=== PATIENT | male | born 1955 | race Caucasian/White ===

== ENCOUNTER 2020-11-13 23:19 | Inpatient (IN) | payer OTHER ==
[~2020-11-13] VITALS: Ht 172.7 cm; Wt 86.2 kg
[~2020-11-13 23:19] MED LIST: [UNRECOGNIZED DRUG - REMARK]; [UNRECOGNIZED DRUG - REMARK]
--- NOTE | 2020-11-13 23:45 | NUR ---
BIBA FROM HOME C/C OF NON RADIATING L SIDED CHEST PAIN FOR 30MINS, PATIENT A/OX4 MAURITANIAN SPEAKING , BREATHING EVEN AND UNLABORED; NO SOB NOTED. VERBALIZED OF PAIN OR AND DISCOMFORT 8/10 L ARM THAT RADIATES TO THE BACK AND HEAD. NEEDS ATTENDED. WILL CARRY OUT MD ORDERS SCHEDULED.
[2020-11-14] MEDS ORDERED: ASPIRIN 325 MG TABLET PO ONE
[2020-11-14 00:04] LABS: BASOPHILS % (AUTO) 0.2 % (0.0-2.0); EOSINOPHILS % (AUTO) 0.4 % (0.0-6.0); HEMATOCRIT 50 % (39-51); HEMOGLOBIN 16.5 g/dL (13.5-17.5); LYMPHOCYTES # (AUTO) 1.8 /CMM (0.8-4.8); LYMPHOCYTES % (AUTO) 22.4 % (20.0-44.0); MEAN CORPUSCULAR HGB CONC 33 g/dl (31.0-36.0); MEAN CORPUSCULAR VOLUME 96 fL (80-96); MONOCYTES # (AUTO) 0.7 /CMM (0.1-1.30); MONOCYTES % (AUTO) 9.2 % (2.0-12.0); NEUTROPHILS # (AUTO) 5.5 /CMM (1.8-8.9); NEUTROPHILS % (AUTO) 67.8 % (43.0-81.0); PLATELET COUNT (AUTO) 174 /CMM (150-450); RED BLOOD CELL COUNT(AUTO) 5.24 MIL/uL (4.5-6.0)
[2020-11-14] MEDS ORDERED: ASPIRIN 325 MG TABLET ONE (00:04)
[2020-11-14] MEDS ORDERED: MORPHINE SULFATE INJ 2 MG/ML DISP.SYRIN ONE ×2 (00:04→00:45)
[2020-11-14 00:14] LABS: CARBON DIOXIDE 22 mmol/L (21-32); CHLORIDE 101 mmol/L (98-107); GLUCOSE 212 mg/dL (74-106); POTASSIUM 3.8 mmol/L (3.5-5.1); SODIUM SERUM 136 mmol/L (136-145); UREA NITROGEN, BLOOD 14 mg/dL (7-18)
--- NOTE | 2020-11-14 00:16 | NUR ---
PT REFUSED ASPIRIN 32MG, PT TOOK AT HOME AND ONE IN THE AMBULANCE. MD SOSA. Addendum: 11/14/20 at 0018 by LUIS ASPIRIN-325MG
[2020-11-14 00:20] LABS: ALANINE AMINOTRANSFERASE 40 U/L (12-78); ALBUMIN 3.5 g/dL (3.4-5.0); ALKALINE PHOSPHATASE 62 U/L (46-116); ASPARTATE AMINOTRANSFERASE 16 U/L (15-37); BILIRUBIN,DIRECT 0.1 mg/dL (0.0-0.2); BILIRUBIN,TOTAL 0.5 mg/dL (0.2-1.0); TOTAL PROTEIN, SERUM 7.2 g/dL (6.4-8.2)
[2020-11-14 00:24] LABS: CALCIUM, SERUM 8.6 mg/dL (8.5-10.1)
[2020-11-14] MEDS ORDERED: MORPHINE SULFATE INJ 2 MG/ML DISP.SYRIN IV ONE ×2 (01:00)
[2020-11-14] MEDS ORDERED: MAG HYDROX/AL HYDROX/SIMETH 30 ML UDC PO ONE (01:00)
[2020-11-14] MEDS ORDERED: LIDOCAINE VISCOUS 2% UD 15 ML UDC MM ONE (01:00)
--- NOTE | 2020-11-14 01:00 | NUR ---
PER ADMITTING DEPARTMENT, REC'D VERBAL AUTH FOR PATIENT TO BE ADMITTED TO [facility] ER
--- NOTE | 2020-11-14 01:06 | NUR ---
DR. PAREDES SPEAKING WITH MARIUSZ HURLEY NP REGARDING ADMISSION
[2020-11-14] MEDS ORDERED: MAG HYDROX/AL HYDROX/SIMETH 30 ML UDC ONE (01:08)
[2020-11-14] MEDS ORDERED: LIDOCAINE VISCOUS 2% UD 15 ML UDC ONE (01:08)
[2020-11-14] MEDS ORDERED: MAG HYDROX/AL HYDROX/SIMETH 30 ML UDC PO PRN (01:30)
[2020-11-14] MEDS ORDERED: MORPHINE SULFATE INJ 2 MG/ML DISP.SYRIN IV PRN (01:30)
[2020-11-14] MEDS ORDERED: NITROGLYCERIN 0.4 MG/TAB BOTTLE SL PRN (01:30)
[2020-11-14] MEDS ORDERED: ONDANSETRON HCL/PF 4 MG/2 ML VIAL IVP PRN (01:30)
[2020-11-14] MEDS ORDERED: DOCUSATE SODIUM 100 MG CAPSULE PO PRN (01:30)
--- NOTE | 2020-11-14 02:25 | NUR ---
CALLED 3W; ADMISSION REPORT GIVEN TO ASTRID SINGH FOR DOMENIC.
--- NOTE | 2020-11-14 02:35 | NUR ---
TRANSFEERED TO 3W ROOM 311#2 VIA GURNEY PER ACLS PROTOCOL. ASTRID SINGH RECEIVED PT FOR DOMENIC.
[2020-11-14 02:45] VITALS: BP 154/102
--- NOTE | 2020-11-14 03:12 | NUR ---
MS/TELE/RN RECEIVED PATIENT FROM [facility] BY PRACHI AT ABOUT 0240. PATIENT WAS AWAKE, ALERT, ORIENTED, COMFORTABLE, WITH C/O MILD CHEST DISCOMFORT, NO DISTRESS NOTED, MADE COMFORTABLE IN BED, ADMISSION DONE, UNABLE TO OBTAIN MUCH INFORMATION FROM THE PATIENT DUE TO LANGUAGE BARRIER, HOWEVER, PATIENT SPEAKS AND UNDERSTANDS SOME HEBREW. INFORMED PATIENT RE: NPO AFTER BREAKFAST DUE TO CHEST PAIN DIAGNOSIS, TAUGHT PATIENT HOW TO USE CALL LIGHT, PLACED IT AT BEDSIDE WITHIN REACH, FALL PRECAUTIONS PER PROTOCOL, WILL MONITOR.
[2020-11-14 04:00] VITALS: BP 141/85
[2020-11-14] MEDS: ACETAMINOPHEN 325 MG TABLET PO PRN ×2 (04:19→08:02)
--- NOTE | 2020-11-14 06:36 | NUR ---
MS/TELE/RN PATIENT IS AWAKE, COMFORTABLE, NO DISTRESS NOTED, CALL LIGHT IN REACH, ALL NEEDS ATTENDED AT THIS TIME, WILL CONTINUE TO MONITOR.
[2020-11-14 07:43] LABS: BASOPHILS % (AUTO) 0.4 % (0.0-2.0); EOSINOPHILS % (AUTO) 0.2 % (0.0-6.0); HEMATOCRIT 49 % (39-51); HEMOGLOBIN 16.1 g/dL (13.5-17.5); LYMPHOCYTES # (AUTO) 1.1 /CMM (0.8-4.8); LYMPHOCYTES % (AUTO) 11.3 % (20.0-44.0); MEAN CORPUSCULAR HGB CONC 33 g/dl (31.0-36.0); MEAN CORPUSCULAR VOLUME 95 fL (80-96); MONOCYTES % (AUTO) 9.9 % (2.0-12.0); NEUTROPHILS # (AUTO) 7.6 /CMM (1.8-8.9); NEUTROPHILS % (AUTO) 78.2 % (43.0-81.0); PLATELET COUNT (AUTO) 183 /CMM (150-450); RED BLOOD CELL COUNT(AUTO) 5.11 MIL/uL (4.5-6.0); WHITE BLOOD COUNT (AUTO) 9.7 K/uL (4.3-11.0)
--- NOTE | 2020-11-14 07:47 | NUR ---
MS/BARTENDER OPENING NOTES RECEIVED PATIENT ALERT AND ORIENTED X4, ABLE TO MAKE NEEDS KNOWN. AMBULATORY. SIERRA LEONEAN SPEAKING BUT UNDERSTANDS LITTLE UPPER SORBIAN. PATIENT ADMITTED FROM HOME DUE TO CHEST PAIN TO R/O ACS. SEEN BY DR. TORRES (TOWER CONTROL OPERATOR) JUST NOW AND PER MD, OKAY TO RESUME MEALS. MD WILL ORDER LABS TODAY. COMFORTABLE IN BED FOR NOW. CALL LIGHTS WITHIN REACH, BED ON LOWEST POSITION. WILL CONTINUE TO MONITOR.
[2020-11-14 08:00] VITALS: BP 101/70
[2020-11-14 08:08] LABS: ALBUMIN 3.5 g/dL (3.4-5.0); BILIRUBIN,TOTAL 0.6 mg/dL (0.2-1.0); CREATININE 0.8 mg/dL (0.6-1.3); MAGNESIUM 2.1 mg/dL (1.8-2.4); PHOSPHORUS 3.5 mg/dL (2.5-4.9); TOTAL PROTEIN, SERUM 7.2 g/dL (6.4-8.2)
--- NOTE | 2020-11-14 08:11 | NUR ---
MS/PRACTICE NURSE NOTES PATIENT COMPLAINED OF HEADACHE AND NAUSEA. PRN TYLENOL GIVEN PO, AND ZOFRAN PRN VIA IV PUSH GIVEN. WILL CONTINUE TO MONITOR.
[2020-11-14 08:18] LABS: THYROID STIMULATING HORMONE 0.875 uIU/mL (0.358-3.74)
--- NOTE | 2020-11-14 08:25 | NUR ---
TELE/RN NOTES TROPONIN 0.778 DR. TORRES WAS AWARE, NO NEW ORDER AT THIS TIME.
[2020-11-14] MEDS ORDERED: ALLO100T PO (08:55)
[2020-11-14] MEDS ORDERED: METF-442 PO (08:55)
[2020-11-14] MEDS ORDERED: ASPI-1420 PO (08:55)
[2020-11-14] MEDS ORDERED: CHOL200010 PO (08:55)
[2020-11-14] MEDS ORDERED: OMEG-220 PO (08:55)
[2020-11-14] MEDS ORDERED: FOLI0.4T6 PO (08:55)
[2020-11-14] MEDS ORDERED: METO50TA16 PO ×2 (08:55→11:52)
[2020-11-14] MEDS ORDERED: NIAC500T40 PO (08:55)
[2020-11-14] MEDS ORDERED: FESO4TAB PO (08:55)
[2020-11-14] MEDS ORDERED: FURO20TA4 PO (08:55)
[2020-11-14] MEDS ORDERED: TAMS-12 PO (08:55)
[2020-11-14] MEDS ORDERED: BUSP5TAB3 PO (08:55)
[2020-11-14] MEDS ORDERED: AMYL1CAP56 PO (08:55)
[2020-11-14] MEDS ORDERED: ENOXAPARIN SODIUM 60 MG/0.6 ML DISP.SYRIN SQ SCH (09:00)
[2020-11-14] MEDS ORDERED: ASPIRIN 81 MG TAB.CHEW PO SCH (09:00)
[2020-11-14] MEDS: ENOXAPARIN SODIUM 80 MG/0.8 ML DISP.SYRIN SQ SCH ×2 (09:11→20:25)
--- NOTE | 2020-11-14 11:24 | NUR ---
TELE/RN NOTES DIET CHANGED TO CARDIAC DIET WITH LOW CARBS DUE TO BEING A DIABETIC.
[2020-11-14] MEDS: METOPROLOL TARTRATE 50 MG TABLET PO SCH ×2 (11:40→17:11)
[2020-11-14] MEDS ORDERED: SIMV-46 PO (11:50)
[2020-11-14] MEDS: FOLIC ACID 1 MG TABLET PO SCH ×2 (12:00→12:34)
--- NOTE | 2020-11-14 12:00 | NUR ---
TELE/MS NOTES PER JAYSON PEPPER, OKAY TO GIVE PATIENT METFORMIN.
[2020-11-14] MEDS: BLOOD SUGAR DIAGNOSTIC 1 EACH STRIP IN SCH ×3 (12:01→21:51)
[2020-11-14] MEDS: FUROSEMIDE 20 MG TABLET PO SCH (12:34)
[2020-11-14] MEDS: CHOLECALCIFEROL 1,000 UNIT TABLET (VIT D3) PO SCH (12:34)
[2020-11-14] MEDS: ALLOPURINOL 100 MG TABLET PO SCH (12:34)
[2020-11-14] MEDS: LIPASE/PROTEASE/AMYLASE 1 EACH CAPSULE.DR PO SCH ×2 (12:34→17:11)
[2020-11-14] MEDS: busPIRone 5 MG TABLET PO SCH ×2 (12:34→17:11)
--- NOTE | 2020-11-14 12:41 | NUR ---
PATIENT REFUSED FOLIC ACID 1MG 12NOON. PER PATIENT, ONCE A WEEK ON MONDAY HE DOES NOT TAKE FOLIC ACID BASED ON HIS MEDICATION SCHEDULE.
[2020-11-14] MEDS ORDERED: IOHEXOL-350 100 ML VIAL IV ONE (14:56)
[2020-11-14] MEDS ORDERED: IV NS 0.9% 250 ML IV ONE (14:56)
--- NOTE | 2020-11-14 15:05 | NUR ---
TELE/MS NOTES PATIENT PICKED UP BY RADIOLOGY DEPT. FOR THE COMPUTED TOMOGRAPHY ANGIOGRAPHY HEART WITH 3 DIMENSION. CONSENT ALREADY SIGNED EARLIER. WILL MONITOR WHEN PATIENT COMES BACK.
[2020-11-14] MEDS ORDERED: METOPROLOL TARTRATE INJ 5 MG/5 ML AMPUL ONE (15:33)
[2020-11-14] MEDS ORDERED: NITROGLYCERIN 0.4 MG/TAB BOTTLE ONE (15:33)
[2020-11-14] MEDS ORDERED: NIACINAMIDE 500 MG TABLET PO SCH (17:00)
[2020-11-14] MEDS ORDERED: METOPROLOL TARTRATE 50 MG TABLET PO SCH (17:00)
[2020-11-14] MEDS: METFORMIN 500 MG TABLET PO SCH (17:11)
[2020-11-14 17:13] VITALS: BP 113/73
--- NOTE | 2020-11-14 17:15 | NUR ---
tele/rn notes bp 113/73 p 68 metoprolol 50 mg is not given. will continue to monitor.
--- NOTE | 2020-11-14 17:31 | NUR ---
TELE/RN NOTES TROPONIN 6.944 DR. TORRES IS AWARE NO NEW ORDER AT THIS TIME.
--- NOTE | 2020-11-14 19:27 | NUR ---
PATIENT IN BED, COMFORTABLE. NO SOB NOTED.NO REPORTED CHEST PAIN. CT ANGIO HEART WITH 3D STILL PENDING RESULT. NEXT SHIFT NURSE WILL FOLLOW UP AND REPORT RESULT TO DR. TORRES. BED ON LOWEST, WITH SIDE RAILS UPX2, CALL LIGHT WITHIN REACH. WILL ENDORSE TO THE NEXT SHIFT RN TO CONTINUE TO MONITOR.
--- NOTE | 2020-11-14 19:33 | NUR ---
TRUST AND ESTATES PARALEGAL OPENING NOTES PATIENT WAS LAST SEEN AWAKE IN BED. PATIENT IS ALERT AND ORIENTED X4. PATIENT IS ON ROOM AIR WITH NO RESPIRATORY DISTRESS NOTED. PATIENT HAS AN IV ACCESS ON HIS LEFT AC GAUGE #2O WHICH IS INTACT, PATENT, AND FLUSHES WELL. SAFETY PRECAUTIONS IMPLEMENTED. BED LOCKED. SIDE RAILS UP. CALL LIGHT IS WITHIN REACH OF THE PATIENT. WILL CONTINUE TO MONITOR THE PATIENT.
[2020-11-14 20:00] VITALS: BP 113/66
--- NOTE | 2020-11-14 20:11 | NUR ---
TELE/RN NOTES DR. TORRES IS AWARE OF THE PATIENT'S LATEST TROPONIN LEVEL OF 6.944. NO ORDERS WERE GIVEN FOR THAT. DR. RNADOLPH WAS MADE AWARE OF THE CT CORONARY ANGIOGRAM RESULTS AND THAT THE PATIENT WAS IN NO CHEST PAIN AT 2010 TODAY. NO ORDERS WERE GIVEN VIA DR. RANDOLPH.
[2020-11-14] MEDS: TAMSULOSIN 0.4 MG CAP.SR.24H PO SCH (21:35)
[2020-11-14] MEDS: SIMVASTATIN 20 MG TABLET PO SCH (21:35)
--- NOTE | 2020-11-14 23:06 | NUR ---
MS RN NOTES PATIENT'S BLOOD SUGAR AT 2146 WAS 168 MG/DL.
[2020-11-15] VITALS (7 sets, daily range): BP systolic 97–119; BP diastolic 59–75
[2020-11-15] MEDS: METOPROLOL TARTRATE 50 MG TABLET PO SCH ×4 (00:30→17:19)
[2020-11-15] MEDS: BLOOD SUGAR DIAGNOSTIC 1 EACH STRIP IN SCH ×4 (07:10→22:00)
--- NOTE | 2020-11-15 07:45 | NUR ---
MS RN OPENING NOTES RECEIVED PATIENT AWAKE IN BED. PATIENT IS A/O X4. PATIENT ON ROOM AIR. PATIENT IS LIBERIAN SPEAKING. TELE RHYTHM IS SINUS 1ST DEGREE BLOCK. PATIENT HAS RAC#18 AND LAC#20. NO SIGNS OF PAIN OR DISTRESS NOTED. ALL SAFETY PRECAUTIONS KEPT IN PLACE. BED IS LOCKED WITH SIDE RAILS UP X3. CALL LIGHT IS WITHIN REACH. WILL CONTINUE TO MONITOR THE PATIENT THROUGHOUT SHIFT
--- NOTE | 2020-11-15 07:53 | NUR ---
BOOK REPAIRER CLOSING NOTES PATIENT WAS LAST SEEN AWAKE IN BED. PATIENT IS ALERT AND ORIENTED X4. PATIENT IS ON ROOM AIR WITH NO RESPIRATORY DISTRESS NOTED. PATIENT'S LATEST BLOOD SUGAR WAS 230 MG/DL. DAY SHIFT NURSE WAS MADE AWARE. PATIENT HAS AN IV ACCESS ON HIS LEFT AC GAUGE #2O WHICH IS INTACT, PATENT, AND FLUSHES WELL. SAFETY PRECAUTIONS IMPLEMENTED. BED LOCKED. SIDE RAILS UP. CALL LIGHT IS WITHIN REACH OF THE PATIENT. ENDORSED CARE TO DAY SHIFT NURSE.
[2020-11-15] MEDS: FOLIC ACID 1 MG TABLET PO SCH (09:00)
[2020-11-15] MEDS: METFORMIN 500 MG TABLET PO SCH ×2 (09:25→17:18)
[2020-11-15] MEDS: busPIRone 5 MG TABLET PO SCH ×2 (09:26→17:18)
[2020-11-15] MEDS: ASPIRIN EC 81 MG TABLET.DR PO SCH (09:27)
[2020-11-15] MEDS: FUROSEMIDE 20 MG TABLET PO SCH (09:27)
[2020-11-15] MEDS: CHOLECALCIFEROL 1,000 UNIT TABLET (VIT D3) PO SCH (09:27)
[2020-11-15] MEDS: ALLOPURINOL 100 MG TABLET PO SCH (09:28)
[2020-11-15] MEDS: LIPASE/PROTEASE/AMYLASE 1 EACH CAPSULE.DR PO SCH ×3 (09:28→17:16)
[2020-11-15] MEDS: ENOXAPARIN SODIUM 80 MG/0.8 ML DISP.SYRIN SQ SCH ×2 (09:31→22:21)
[2020-11-15 09:57] LABS: BASOPHILS % (AUTO) 0.5 % (0.0-2.0); EOSINOPHILS % (AUTO) 0.3 % (0.0-6.0); HEMATOCRIT 51 % (39-51); HEMOGLOBIN 16.7 g/dL (13.5-17.5); LYMPHOCYTES # (AUTO) 1.2 /CMM (0.8-4.8); MEAN CORPUSCULAR HGB CONC 33 g/dl (31.0-36.0); MEAN CORPUSCULAR VOLUME 96 fL (80-96); MONOCYTES % (AUTO) 11.8 % (2.0-12.0); NEUTROPHILS # (AUTO) 5.9 /CMM (1.8-8.9); NEUTROPHILS % (AUTO) 72.4 % (43.0-81.0); PLATELET COUNT (AUTO) 188 /CMM (150-450); RED BLOOD CELL COUNT(AUTO) 5.26 MIL/uL (4.5-6.0); WHITE BLOOD COUNT (AUTO) 8.1 K/uL (4.3-11.0)
[2020-11-15 10:43] LABS: CALCIUM, SERUM 9.1 mg/dL (8.5-10.1); CREATININE 1.1 mg/dL (0.6-1.3); POTASSIUM 3.9 mmol/L (3.5-5.1)
[2020-11-15 10:49] LABS: ALBUMIN 3.5 g/dL (3.4-5.0); BILIRUBIN,TOTAL 0.9 mg/dL (0.2-1.0); MAGNESIUM 2.3 mg/dL (1.8-2.4); PHOSPHORUS 3.3 mg/dL (2.5-4.9); TOTAL PROTEIN, SERUM 7.4 g/dL (6.4-8.2)
--- NOTE | 2020-11-15 12:01 | NUR ---
TELE MS RN NOTES PATIENTS PROMISED TO BRING NIACINAMIDE FROM HOME.
--- NOTE | 2020-11-15 15:09 | NUR ---
RN NOTES RECEIVED CALL FROM [employer] THAT PATIEMTS TROPONIN LEVEL IS 12.[address] TORRES, REPLIED THAT PATIENT IS FOR CARDIAC CATH TOMORROW. WILL CONTINUE TO MONITOR.
--- NOTE | 2020-11-15 18:43 | NUR ---
RN CLOSING NOTES PATIENT IS AWAKE LAYING IN BED. AT BEDSIDE. ALERT AND ORIENTED X 4. PATIENT GOING FOR CARDIAC CATH TMRW, CONSENT SIGNED BY PATIENT. PATIENT AWARE NPOTO BE ENFORCED AFTER MIDNIGHT .NO ACUTE DISTRESS NOTED. NO COMPLAINTS OF PAIN. CALL LIGHT WITHIN REACH. ALL NEEDS MET. WILL ENDORSE TO ONCOMING SHIFT Addendum: 11/15/20 at 1903 by NATAN HESS RN ADDENDUM PATIENT ON TELE MONITOR WITH CURRENT READING OF SINUS RHYHM 1ST DEGREE BLOCK WITH PVCS HEART RATE 86
--- NOTE | 2020-11-15 19:24 | NUR ---
SSIS ARCHITECT NOTES PATIENT IS AWAKE LAYING IN BED. AT BEDSIDE. ALERT AND ORIENTED X 4. NO PAIN DISCOMFORT NOTED OR REPORTED AT THIS TIME. NO RESPIRATORY DISTRESS NOTED OR REPORTED PT BREATHING UNLABORED WITH SYMMETRICAL RISE ND FALL OF CHEST. PATIENT GOING FOR CARDIAC CATH TMRW,CONSENT SIGNED BY PATIENT. PATIENT AWARE NPO TO BE ENFORCED AFTER MIDNIGHT CALL LIGHT WITHIN REACH. ALL NEEDS MET AT THIS TIME. SAFETY PRECAUTIONS FOLLOWED. WILL CONTINUE TO MONITOR
[2020-11-15] MEDS: TAMSULOSIN 0.4 MG CAP.SR.24H PO SCH (22:14)
[2020-11-15] MEDS: SIMVASTATIN 20 MG TABLET PO SCH (22:15)
[2020-11-16] VITALS (15 sets, daily range): BP systolic 100–144; BP diastolic 23–96
[2020-11-16] MEDS: METOPROLOL TARTRATE 50 MG TABLET PO SCH ×5 (00:28→23:08)
[2020-11-16] MEDS: BLOOD SUGAR DIAGNOSTIC 1 EACH STRIP IN SCH ×4 (06:30→21:59)
[2020-11-16 06:34] LABS: BASOPHILS % (AUTO) 0.3 % (0.0-2.0); EOSINOPHILS % (AUTO) 0.6 % (0.0-6.0); HEMATOCRIT 47 % (39-51); HEMOGLOBIN 15.5 g/dL (13.5-17.5); LYMPHOCYTES # (AUTO) 1.4 /CMM (0.8-4.8); LYMPHOCYTES % (AUTO) 19.3 % (20.0-44.0); MEAN CORPUSCULAR HGB CONC 33 g/dl (31.0-36.0); MEAN CORPUSCULAR VOLUME 96 fL (80-96); MONOCYTES # (AUTO) 0.8 /CMM (0.1-1.30); NEUTROPHILS # (AUTO) 4.8 /CMM (1.8-8.9); NEUTROPHILS % (AUTO) 67.8 % (43.0-81.0); PLATELET COUNT (AUTO) 159 /CMM (150-450); RED BLOOD CELL COUNT(AUTO) 4.86 MIL/uL (4.5-6.0)
--- NOTE | 2020-11-16 06:38 | NUR ---
OUTSIDE DEALER SALES REPRESENTATIVE NOTES PATIENT IS AWAKE LAYING IN BED. ALERT AND ORIENTED X 4. NO PAIN DISCOMFORT NOTED OR REPORTED AT THIS TIME. NO RESPIRATORY DISTRESS NOTED OR REPORTED PT BREATHING UNLABORED WITH SYMMETRICAL RISE ND FALL OF CHEST. PT NPO FOR PROCEDURE TODAY.CONSENT SIGNED BY PATIENT. CALL LIGHT WITHIN REACH. ALL NEEDS MET AT THIS TIME. SAFETY PRECAUTIONS FOLLOWED. WILL ENDORSE CARE TO DAY SHIFT NURSE.
[2020-11-16 07:01] LABS: ALBUMIN 3.1 g/dL (3.4-5.0); BILIRUBIN,TOTAL 0.6 mg/dL (0.2-1.0); CREATININE 0.9 mg/dL (0.6-1.3); MAGNESIUM 2.1 mg/dL (1.8-2.4); PHOSPHORUS 3.8 mg/dL (2.5-4.9); POTASSIUM 3.4 mmol/L (3.5-5.1); TOTAL PROTEIN, SERUM 6.7 g/dL (6.4-8.2)
--- NOTE | 2020-11-16 07:03 | NUR ---
NEWS ASSISTANT OPENING NOTES RECEIVED PT AWAKE IN BED AT THIS TIME. AOX4.ABLE TO VERBALIZE NEEDS. NO SOB NOTED, NO S/O ANY APPARENT DISTRESS NOTED, NO C/O OF PAIN AT THIS TIME. PT STABLE ON RA. RESPIRATIONS EVEN AND UNLABORED. PT ON EXTERNAL CARDIAC TELE MONITOR READING SR IN THE 80s. IV ACCESS NOTED IN LAC G#20, INTACT, PATENT AND FLUSHING WELL. SAFETY PRECAUTIONS IN PLACE AND MAINTAINED AT ALL TIMES. BED IN LOWEST LOCKED POSITION, HOB ELEVATED, SIDE RAILS UP X 2. CALL LIGHT AND TABLE WITHIN REACH. WILL CONTINUE TO MONITOR
[2020-11-16] MEDS: LIPASE/PROTEASE/AMYLASE 1 EACH CAPSULE.DR PO SCH ×3 (08:23→17:15)
[2020-11-16] MEDS: ALLOPURINOL 100 MG TABLET PO SCH (08:24)
[2020-11-16] MEDS: CHOLECALCIFEROL 1,000 UNIT TABLET (VIT D3) PO SCH (08:24)
[2020-11-16] MEDS: METFORMIN 500 MG TABLET PO SCH ×2 (08:25→16:54)
[2020-11-16] MEDS: busPIRone 5 MG TABLET PO SCH ×2 (08:25→17:15)
[2020-11-16] MEDS: FOLIC ACID 1 MG TABLET PO SCH (08:28)
[2020-11-16] MEDS ORDERED: POTASSIUM CHLORIDE 20 MEQ TAB.PRT.SR PO SCH (09:00)
[2020-11-16] MEDS: ENOXAPARIN SODIUM 80 MG/0.8 ML DISP.SYRIN SQ SCH ×2 (09:00→21:48)
[2020-11-16] MEDS ORDERED: IODIXANOL 150 ML IV ONE (09:49)
[2020-11-16] MEDS ORDERED: IV NS 0.9% 1,000 ML ONE (09:49)
[2020-11-16] MEDS: ASPIRIN EC 81 MG TABLET.DR PO SCH (09:51)
--- NOTE | 2020-11-16 12:30 | NUR ---
PATIENT TRANSPORTED FOR CARDIAC CATH BY BED AT THIS TIME BY TWO INSURANCE UNDERWRITING ASSISTANT RNS WITH ACLS PROTOCOLS IN PLACE. WILL CONTINUE WITH PLAN OF CARE.
[2020-11-16] MEDS ORDERED: LIDOCAINE HCL/MPF 1% 30 ML VIAL IJ ONE (12:37)
[2020-11-16] MEDS ORDERED: FENTANYL PF 100MCG/2ML AMPUL ONE ×2 (13:21→14:36)
[2020-11-16] MEDS ORDERED: MIDAZOLAM HCL 2 MG/2ML VIAL ONE (13:22)
[2020-11-16] MEDS ORDERED: NITROGLYCERIN ICAR 1,000 MCG/10 ML VIAL ICAR ONE ×2 (13:22→14:26)
[2020-11-16] MEDS ORDERED: PHENYLEPHRINE 10 MG/ML VIAL ONE (14:06)
[2020-11-16] MEDS ORDERED: IODIXANOL 320MG/ML 50 ML IV ONE (14:09)
[2020-11-16] MEDS ORDERED: HEPARIN SODIUM, PORCINE 1,000 UNIT/ML VIAL ONE (14:19)
[2020-11-16] MEDS ORDERED: hydrALAZINE HCL IV 20 MG VIAL ONE (14:36)
[2020-11-16] MEDS ORDERED: TICAGRELOR 90 MG TABLET PO ONE (14:41)
[2020-11-16] MEDS ORDERED: ASPIRIN 81 MG TAB.CHEW ONE (14:41)
[2020-11-16] MEDS ORDERED: IODIXANOL IV ONE ×2 (14:44)
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
[2020-11-16] MEDS ORDERED: IV NS 0.9% 1,000 ML IV ONE (16:00)
[2020-11-16] MEDS ORDERED: ASPIRIN 81 MG TAB.CHEW PO ONE (16:00)
[2020-11-16] MEDS ORDERED: MAGNESIUM HYDROXIDE 30 ML UDC PO PRN (16:30)
--- NOTE | 2020-11-16 16:54 | NUR ---
PATIENT S/P CARDIAC CATH PROCEDURE. REPORT CALLED TO ASTRID MCCLELLAN AT ICU AT THIS TIME.
--- NOTE | 2020-11-16 16:57 | NUR ---
VIRA, PATIENT'S ([phone]) UPDATED ON PATIENTS STATUS AND TRANSFER TO ICU RM 254 POST CARDIAC CATH AT THIS TIME.
--- NOTE | 2020-11-16 17:01 | NUR ---
LEATHER TACKER NOTES METFORMIN HELD 2 HOURS POST HOME EXTENSION AGENT PROCEDURE PER ORDER
--- NOTE | 2020-11-16 17:12 | NUR ---
TOUR OPERATOR NOTES NOTIFIED DR TORRES REGARDING TROPONIN OF 9.308 , VERIFIED IF HE WANTS TO TREND IT Q6 OR ORDER IN AM , PER MD ORDER ONE FOR AM , ORDER CARRIED OUT
[2020-11-16] MEDS: TICAGRELOR 90 MG TABLET PO SCH (17:15)
--- NOTE | 2020-11-16 17:30 | NUR ---
WORSHIP LEADER NOTES RIGHT RADIAL TR BAND REMOVED , NO BLEEDING NOTED , TAGADERM APPLIED RIGHT FEMORAL INSERTION SITE DRESSING CLEAN DRY AND INTACT NO BLEEDING NOTED , RIGHT AND LEFT DORSALIS PEDIS AND POSTERIOR TIBIAL PULSES ARE PALPABLE , WARM TO TOUCH , CAPILLARY REFILL LESS THAN 3 SECONDS , SENSATION PRESENT NO TINGLING SENSATION NOTED ,
--- NOTE | 2020-11-16 17:33 | NUR ---
PUG MILL OPERATOR HELPER NOTES SPOKE WITH CATHY REGARDING BRILINTA PRESCRIPTION , CASE MANAGEMENT AWARE ,.
--- NOTE | 2020-11-16 18:58 | NUR ---
CHROME TANNER NOTES VERIFIED WITH DR RODRIGUEZ WHEN PT CAN BE OUT OF BED , PER MD 2 HOURS POST SHEAT REMOVAL .
--- NOTE | 2020-11-16 18:59 | NUR ---
FREIGHT SOLICITOR NOTES PATIENT STABLE AT THIS TIME . AOX4 FAROESE / FRENCH SPEAKING , SR 95 ON BEDSIDE MONITOR , SPO2 OF 100% VIA RA , IV OF TREVER ML PATENT AND INTACT WITH NS @ 100ML/HR X6 HOURS , L AC # 20 PATENT AND INTACT SL , RIGHT RADIAL TRANSPARENT DRESSING IN PLACE NO BLEEDING NOTED , RIGHT FEMORAL INSERTION SITE CLEAN DRY AND INTACT , RIGHT AND LEFT DORSALIS PEDIS AND POSTERIOR TIBIAL PULSES ARE PALPABLE , WARM TO TOUCH , DENIES NUMBNESS AND TINGLINGSENSATION , CAPILLARY REFILL BELOW 3 SECONDS @ BOTH HANDS AND BOTH FOOT , ALL NEEDS ATTENDED , HOB @ 30 , REPORT GIVEN TO [facility] FOR CONTINUITY OF CARE
--- NOTE | 2020-11-16 19:30 | NUR ---
RN NOTES RECEIVED PATIENT AWAKE ON BED. BREATHING EVEN AND UNLABORED ON ROOM AIR. NO SOB DENIES CHEST PAIN. 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 IV SITE ON TREVER ML AND LAC WITH NS 100 ML/HR X 6HRS TO BE DONE AT 10 PM . PATIENT HAS RIGHT TR BAND REMOVED WITH SMALL BLD. BUT NOT ACTIVELY BLEEDING. RIGHT GROIN WITH CLEAN DRESSING. NO C/O PAIN. CALL LIGHT PLACED WITHIHN EASY REACH. WILL CONTINUE TO MONITOR.
[2020-11-16] MEDS: TAMSULOSIN 0.4 MG CAP.SR.24H PO SCH (21:48)
[2020-11-16] MEDS: SIMVASTATIN 20 MG TABLET PO SCH (21:48)
--- NOTE | 2020-11-16 23:00 | NUR ---
RN NOTES PATIENT ISBEGGING AND REQUESTING NOT TO PUT THE BP CUFF ON HIS ARM WHILE HE WAS SLEEPING. PER PATIENT HE CANT SLEEP BECAUSE IT KEEPS SQUEEZING HIS ARM AND WOKE HIM UP. RISK AD BENEFITS EXPLAINED AND THE POLICY OF BEING IN ICU, PATIENT IS AWARE, RESPECTED PATIENT REQUEST AND INFORMED ONCALL. WILL LOSELY MONITOR,
[2020-11-17] VITALS (7 sets, daily range): BP systolic 96–118; BP diastolic 63–75
--- NOTE | 2020-11-17 06:08 | NUR ---
RN NOTES INFORMED MARIUSZ HONEYCUTT REGARDING CRITICAL TROPONIN 10.103 FROM 9.3 YESTERDAY. PER SUPERINTENDENT COLLIERY, MONITOR PATIENT.
[2020-11-17] MEDS: METOPROLOL TARTRATE 50 MG TABLET PO SCH ×2 (06:57→11:47)
--- NOTE | 2020-11-17 07:15 | NUR ---
RN NOTES PATIENT ASLEEP WELL ON BED. BREATHING EVEN AND UNLABORED. DENIES PAIN. AFEBRILE. VSS. REMAINED SR WITH FIRST DEGREE AVB WITH BBB. DENIES CHEST PAIN. NO SIGNIFICANT CHANGES. KEPT PT CLEAN AND COMFORTABLE IN BED. ALL DUE MEDS ADMINISTERED ORDERED.
--- NOTE | 2020-11-17 07:52 | NUR ---
OPENING NOTE: REPORT RECEIVED FROM PITA RESENDIZ. PT HAD AN UNEVENTFUL NIGHT PER REPORT. DR. TORRES SAW PATIENT THIS AM AND STATED PT CAN BE DISCHARGED TODAY. DAYANA RESENDIZ TRANSLATED FOR DR TORRES IN ROOM. AWAITING DC ORDERS FROM PRIMARY MD. NO AM LABS TODAY EXCEPT TROPONIN, WHICH IS ELEVATED AT 10.3, DR TORRES AWARE. PER REPORT PT DOES NOT WANT TO KEEP THE BP CUFF ON SO RN WILL PUT THE BP CUFF ON WHEN VS DUE. PT HAS AGREED TO KEEP TELEMETRY ON. WILL CONTINUE TO MONITOR.
[2020-11-17 08:17] LABS: BASOPHILS % (AUTO) 0.7 % (0.0-2.0); EOSINOPHILS % (AUTO) 0.5 % (0.0-6.0); HEMATOCRIT 48 % (39-51); HEMOGLOBIN 15.6 g/dL (13.5-17.5); LYMPHOCYTES # (AUTO) 0.7 /CMM (0.8-4.8); LYMPHOCYTES % (AUTO) 10.6 % (20.0-44.0); MEAN CORPUSCULAR HGB CONC 33 g/dl (31.0-36.0); MEAN CORPUSCULAR VOLUME 96 fL (80-96); MONOCYTES # (AUTO) 0.4 /CMM (0.1-1.30); MONOCYTES % (AUTO) 6.2 % (2.0-12.0); NEUTROPHILS # (AUTO) 5.4 /CMM (1.8-8.9); PLATELET COUNT (AUTO) 159 /CMM (150-450); RED BLOOD CELL COUNT(AUTO) 4.97 MIL/uL (4.5-6.0); WHITE BLOOD COUNT (AUTO) 6.6 K/uL (4.3-11.0)
[2020-11-17 08:23] LABS: CALCIUM, SERUM 8.8 mg/dL (8.5-10.1); POTASSIUM 3.6 mmol/L (3.5-5.1)
[2020-11-17 08:29] LABS: BILIRUBIN,TOTAL 0.9 mg/dL (0.2-1.0); PHOSPHORUS 2.7 mg/dL (2.5-4.9); TOTAL PROTEIN, SERUM 6.7 g/dL (6.4-8.2)
--- NOTE | 2020-11-17 08:40 | NUR ---
RN SPOKE TO DR JORI BLAKE. PT HAS METFORMIN ORDERED THAT IS SUPPOSED TO BE HELD FOR 48 HOURS AFTER HEART CATH, HEART CATH WAS YESTERDAY. BLOOD GLUCOSE THIS AM IS 195. PT INSISTING ON TAKING HIS METFORMIN DOSE. PER DR. JORI BLAKE BENEFITS OUTWEIGH THE RISKS, OK TO GIVE METFORMIN DOSE THIS AM.
[2020-11-17] MEDS: busPIRone 5 MG TABLET PO SCH (08:43)
[2020-11-17] MEDS: LIPASE/PROTEASE/AMYLASE 1 EACH CAPSULE.DR PO SCH ×2 (08:43→11:47)
[2020-11-17] MEDS: BLOOD SUGAR DIAGNOSTIC 1 EACH STRIP IN SCH ×2 (08:43→11:46)
[2020-11-17] MEDS: CHOLECALCIFEROL 1,000 UNIT TABLET (VIT D3) PO SCH (08:43)
[2020-11-17] MEDS: ALLOPURINOL 100 MG TABLET PO SCH (08:44)
[2020-11-17] MEDS: FOLIC ACID 1 MG TABLET PO SCH (08:44)
[2020-11-17] MEDS: TICAGRELOR 90 MG TABLET PO SCH (08:44)
[2020-11-17] MEDS: METFORMIN 500 MG TABLET PO SCH (08:44)
[2020-11-17] MEDS: ASPIRIN EC 81 MG TABLET.DR PO SCH (08:44)
[2020-11-17 10:33] LABS: LYMPHOCYTES % (MANUAL) 9 % (16-48); MONOCYTES % (MANUAL) 8 % (0-11.0); NEUTROPHILS % (MANUAL) 83 (42-76)
[2020-11-17] MEDS ORDERED: TICA90TA PO (10:42)
--- NOTE | 2020-11-17 15:38 | NUR ---
DISCHARGED PATIENT AT 1507, PT BROUGHT TO CAR IN WHEELCHAIR BY RN, ACCOMPANIED. PRIOR TO DISCHARGE DISCHARGE INSTRUCTIONS GIVEN AND SIGNED BY . IV SITES REMOVED AND DOCUMENTED. PT TOOK ALL CLOTHES AND PERSONAL BELONGINGS HOME INCLUDING CELL PHONE. PRESCRIPTIONS GIVEN TO PT'S IN DISCHARGE PACKET. PT'S INSURANCE WOULD NOT PAY FOR BRILINTA, PLAVIX PRESCRIPTION WAS SUBSTITUTED, PRESCRIPTION GIVEN TO PT'S .
== END 2020-11-17 15:40 | disposition home or self-care (01) | DRG 175 ==
LOC: ER 23:20 → TELE 11-14 02:08 → ICU 11-16 15:31
PROVIDERS: ADMIT Registered Nurse; ATTEND Nurse Practitioner Acute Care
PROC: 027034Z Dilation of Coronary Artery, One Artery with Drug-eluting Intraluminal Device, Percutaneous Approach (ICD-10-PCS; principal; 2020-11-16)
PROC: 4A023N7 Measurement of Cardiac Sampling and Pressure, Left Heart, Percutaneous Approach (ICD-10-PCS; 2020-11-16)
PROC: B211YZZ Fluoroscopy of Multiple Coronary Arteries using Other Contrast (ICD-10-PCS; 2020-11-16)
PROC: 02C03ZZ Extirpation of Matter from Coronary Artery, One Artery, Percutaneous Approach (ICD-10-PCS; 2020-11-16)
PROC: 05HC33Z Insertion of Infusion Device into Left Basilic Vein, Percutaneous Approach (ICD-10-PCS; 2020-11-16)
DX: I25.10 Atherosclerotic heart disease of native coronary artery without angina pectoris (principal); I21.A1 Myocardial infarction type 2; J90 Pleural effusion, not elsewhere classified; E66.9 Obesity, unspecified; I25.2 Old myocardial infarction; Z95.5 Presence of coronary angioplasty implant and graft; Z68.31 Body mass index [BMI] 31.0-31.9, adult; J98.11 Atelectasis; G47.33 Obstructive sleep apnea (adult) (pediatric); Z20.822 Contact with and (suspected) exposure to COVID-19; E11.9 Type 2 diabetes mellitus without complications; I10 Essential (primary) hypertension
CPT/HCPCS: 36410; 36415; 71045-TC; 75574; 80048-TC; 80053-TC; 80061-TC; 80076-TC; 82962-TC; 83735-TC; 84100-TC; 84443-TC; 84484-TC; 85025-TC; 85610-TC; 87081-TC; 92980; 93307-TC; C1725; C1769; C1894; C9803; G0378; G0500; J0360; J1644; J1650; J2250; J2270; J2370; J2405; J3010; J3490; J7030; J7050; Q9967

== ENCOUNTER 2021-07-13 17:42 | Inpatient (IN) | payer MEDICARE, OTHER ==
[~2021-07-13] VITALS: Ht 170.2 cm; Wt 91.8 kg
[2021-07-13] MEDS: TAMSULOSIN 0.4 MG CAP.SR.24H PO SCH (00:33)
[2021-07-13] MEDS: SIMVASTATIN 20 MG TABLET PO SCH (00:33)
[~2021-07-13 17:42] MED LIST changes: +ALLO100T PO; +AMYL1CAP56 PO; +ASPI-1420 PO; +BUSP5TAB3 PO; +CHOL200010 PO; +FESO4TAB PO; +FOLI0.4T6 PO; +FURO20TA4 PO; +METF-442 PO; +METO50TA16 PO; +NIAC500T40 PO; +OMEG-72 PO; +SIMV-46 PO; +TAMS-12 PO; +TICA90TA PO; -[UNRECOGNIZED DRUG - REMARK]; -[UNRECOGNIZED DRUG - REMARK]
--- NOTE | 2021-07-13 17:58 | NUR ---
BIB RA889 FROM HOME FOR SUDDEN RECTAL BLEED STARTING TODAY. STOOL IS DARK RED WITH CLOTS. NO HX RECTAL BLEED OR HEMORRHOIDS. COVID POSITIVE 10 DAYS AGO. DENIES COVID SYMPTOMS. AAO4, BREATHING EVEN AND UNLABORED, PULSE 2+ BILATERALLY. ASSISTED TO ER BED 2, CHANGED TO GOWN, IN DIAPER, BLOOD CLEANED FROM PT
--- NOTE | 2021-07-13 18:09 | NUR ---
IV LINE IS ESTABLISHED, BLOOD SPECIMEN COLLECTED AND SENT TO THE LAB. THE LINE IS SALINE LOCKED.
--- NOTE | 2021-07-13 18:16 | NUR ---
Shayy solorio in [facility] - 07/13/21 at 1846 by PAULINE urine sample obtained and sent to lab
--- NOTE | 2021-07-13 18:16 | NUR ---
CYNDI SAMPLE OBTAINED AND SENT TO LAB
--- NOTE | 2021-07-13 18:19 | NUR ---
fecal sample obtained and sent to lab
[2021-07-13] MEDS ORDERED: IV NS 0.9% 1,000 ML BAG IV ONE (18:30)
--- NOTE | 2021-07-13 18:35 | NUR ---
Shayy solorio in [facility] - 07/13/21 at 1835 by PAULINE PT REFUSED TB QUANTIFERON GOLD TEST
--- NOTE | 2021-07-13 18:50 | NUR ---
PT TAKEN TO CT
--- NOTE | 2021-07-13 19:02 | NUR ---
PT BACK FROM CT
[2021-07-13 19:20] LABS: CALCIUM, SERUM 8.2 mg/dL (8.5-10.1); CREATININE 1.7 mg/dL (0.6-1.3); POTASSIUM 4.2 mmol/L (3.5-5.1)
[2021-07-13 19:27] LABS: ALBUMIN 2.5 g/dL (3.4-5.0); BILIRUBIN,DIRECT 0.1 mg/dL (0.0-0.2); BILIRUBIN,TOTAL 0.8 mg/dL (0.2-1.0); TOTAL PROTEIN, SERUM 6.5 g/dL (6.4-8.2)
[2021-07-13 20:48] LABS: BASOPHILS % (AUTO) 0.2 % (0.0-2.0); EOSINOPHILS % (AUTO) 0.6 % (0.0-6.0); HEMATOCRIT 39 % (39-51); LYMPHOCYTES # (AUTO) 0.4 K/uL (0.8-4.8); LYMPHOCYTES % (AUTO) 10.3 % (20.0-44.0); MEAN CORPUSCULAR HGB CONC 33 g/dl (31.0-36.0); MEAN CORPUSCULAR VOLUME 94 fL (80-96); MONOCYTES # (AUTO) 0.1 K/uL (0.1-1.30); MONOCYTES % (AUTO) 3.8 % (2.0-12.0); NEUTROPHILS # (AUTO) 3.2 K/uL (1.8-8.9); NEUTROPHILS % (AUTO) 85.1 % (43.0-81.0); PLATELET COUNT (AUTO) 102 K/uL (150-450); RED BLOOD CELL COUNT(AUTO) 4.16 MIL/uL (4.5-6.0); WHITE BLOOD COUNT (AUTO) 3.8 K/uL (4.3-11.0)
--- NOTE | 2021-07-13 22:38 | NUR ---
COVID ANTIGEN SWAB COLLECTED AND SENT TO LAB. NOTIFIED LAB VIA PHONE CALL
[2021-07-13] MEDS ORDERED: DEXTROSE 50%-WATER 50 ML DISP.SYRIN IV PRN (23:00)
[2021-07-13] MEDS ORDERED: ONDANSETRON HCL/PF 4 MG/2 ML VIAL IVP PRN (23:00)
--- NOTE | 2021-07-13 23:21 | NUR ---
CALL FROM LAB. RAPID COVID POSITIVE.
[2021-07-13] MEDS ORDERED: PANTOPRAZOLE 40 MG VIAL ONE (23:53)
[2021-07-13] MEDS ORDERED: SIMVASTATIN 10 MG TABLET ONE (23:54)
[2021-07-13] MEDS ORDERED: TAMSULOSIN 0.4 MG CAP.SR.24H ONE (23:54)
[2021-07-13] MEDS ORDERED: INSULIN REGULAR, HUMAN 100 UNIT/ML 10 ML VIAL ONE (23:57)
[2021-07-14] MEDS ORDERED: busPIRone 5 MG TABLET ONE ×2 (00:25→10:50)
[2021-07-14] MEDS ORDERED: busPIRone 5 MG TABLET PO SCH (00:30)
--- NOTE | 2021-07-14 00:31 | NUR ---
BLOODY BM X1. KEPT PATIENT CLEAN AND DRY. PT TOLERATING R/A WELL. ALL NEEDS MET AT THIS TIME. PT SLEEPING IN BED.
[2021-07-14] MEDS: BLOOD SUGAR DIAGNOSTIC 1 EACH STRIP IN SCH ×4 (00:33→17:29)
[2021-07-14] MEDS: INSULIN REGULAR, HUMAN 100 UNIT/ML 3 ML VIAL SQ PRN ×3 (00:49→17:31)
[2021-07-14] MEDS: PANTOPRAZOLE 40 MG VIAL IV SCH ×3 (02:45→21:08)
[2021-07-14] MEDS: IV NS 0.9% 1,000 ML IV PRN ×2 (03:10→13:21)
[2021-07-14 05:01] LABS: BASOPHILS % (AUTO) 0.1 % (0.0-2.0); EOSINOPHILS % (AUTO) 0.6 % (0.0-6.0); HEMATOCRIT 40 % (39-51); HEMOGLOBIN 13.6 g/dL (13.5-17.5); LYMPHOCYTES # (AUTO) 0.5 K/uL (0.8-4.8); LYMPHOCYTES % (AUTO) 10.5 % (20.0-44.0); MEAN CORPUSCULAR HGB CONC 34 g/dl (31.0-36.0); MEAN CORPUSCULAR VOLUME 94 fL (80-96); MONOCYTES # (AUTO) 0.1 K/uL (0.1-1.30); MONOCYTES % (AUTO) 2.9 % (2.0-12.0); NEUTROPHILS % (AUTO) 85.9 % (43.0-81.0); PLATELET COUNT (AUTO) 129 K/uL (150-450); RED BLOOD CELL COUNT(AUTO) 4.31 MIL/uL (4.5-6.0); WHITE BLOOD COUNT (AUTO) 4.7 K/uL (4.3-11.0)
[2021-07-14 05:38] LABS: CREATININE 1.5 mg/dL (0.6-1.3); MAGNESIUM 2.6 mg/dL (1.8-2.4); PHOSPHORUS 3.7 mg/dL (2.5-4.9); POTASSIUM 3.6 mmol/L (3.5-5.1)
[2021-07-14] MEDS ORDERED: QUETIAPINE FUMARATE 25 MG TABLET PO ONE (06:00)
[2021-07-14] MEDS ORDERED: QUETIAPINE FUMARATE 25 MG TABLET ONE (06:03)
--- NOTE | 2021-07-14 07:15 | NUR ---
RN CLOSING NOTES PATIENT REMAIN STABLE THROUGH OUT THE SHIFT. PATIENT ON 6LPM VIA NASAL CANULA , NO SOB NOTED, NO S/S OF DISTRESS NOTED. PATIENT WITH LEFT ANTECUBITAL PERIPHERAL LINE #20. RUNNING WITH NS @ 75CC/HR. ALL DUE MEDS GIVEN ORDERED. ALL SAFETY MEASURE IN PLACE. BED ON LOWEST POSITION, LOCKED BED ALARM ARMED. CALL LIGHT WITHIN REACH. WILL CONTINUE TO MONITOR
--- NOTE | 2021-07-14 07:30 | NUR ---
PT LAYING IN BED COMFORTABLY, VS STABLE
--- NOTE | 2021-07-14 08:45 | NUR ---
ADDITIONAL BLANKETS GIVEN TO PT, VS STABLE, WILL CONTINUE TO MONITOR
[2021-07-14] MEDS ORDERED: FUROSEMIDE 20 MG TABLET PO SCH (09:00)
[2021-07-14] MEDS ORDERED: NIACINAMIDE 500 MG TABLET PO SCH (09:00)
--- NOTE | 2021-07-14 09:30 | NUR ---
LINEN CHANGED, PT ASSISTED TO DIAPER, VS STABLE
--- NOTE | 2021-07-14 10:04 | NUR ---
PHARMACY CALLED FOR MEDICATION
--- NOTE | 2021-07-14 10:41 | NUR ---
PT DIAPER CHANGED, ADDITIONAL BLANKETS GIVEN, VS STABLE
[2021-07-14] MEDS ORDERED: PANTOPRAZOLE 40 MG VIAL ONE (10:49)
[2021-07-14] MEDS ORDERED: CHOLECALCIFEROL 1,000 UNIT TABLET (VIT D3) ONE (10:50)
[2021-07-14] MEDS ORDERED: FOLIC ACID 1 MG TABLET ONE (10:50)
[2021-07-14] MEDS ORDERED: OXYBUTYNIN CHLORIDE 5 MG TABLET ONE (10:51)
[2021-07-14] MEDS ORDERED: METOPROLOL TARTRATE 50 MG TABLET ONE (10:51)
[2021-07-14] MEDS: FOLIC ACID 1 MG TABLET PO SCH (11:00)
[2021-07-14] MEDS: OXYBUTYNIN CHLORIDE 5 MG TABLET PO SCH ×2 (11:00→17:21)
[2021-07-14] MEDS: CHOLECALCIFEROL 1,000 UNIT TABLET (VIT D3) PO SCH (11:00)
[2021-07-14] MEDS: LIPASE/PROTEASE/AMYLASE 1 EACH CAPSULE.DR PO SCH ×3 (11:00→17:21)
[2021-07-14] MEDS: ALLOPURINOL 100 MG TABLET PO SCH (11:00)
[2021-07-14] MEDS: busPIRone 5 MG TABLET PO SCH ×2 (11:00→17:21)
--- NOTE | 2021-07-14 11:13 | NUR ---
GOT BED 119-2
--- NOTE | 2021-07-14 11:26 | NUR ---
REPORT GIVEN TO ASTRID MATA
--- NOTE | 2021-07-14 11:48 | NUR ---
PT TRANSFERRED TO FLOOR VIA ACLS PROTOCOL, BY EMT AND RN
[2021-07-14] MEDS: METOPROLOL TARTRATE 50 MG TABLET PO SCH ×3 (12:00→17:21)
[2021-07-14] MEDS ORDERED: DEXAMETHASONE SOD PHOSPHATE 10 MG/ML VIAL IV SCH (13:30)
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
[2021-07-14 16:00] VITALS: BP 110/69
[2021-07-14] MEDS ORDERED: PEG 3350/NA SULF,BICARB,CL/KCL 4,000 ML BOTTLE PO ONE (18:00)
--- NOTE | 2021-07-14 18:39 | NUR ---
RN NOTE CONSENT OBTAINED FOR Colonoscopy with possible biopsy, possible polypectomy, possible cauterization, possible sclerotherapy and possible hemorrhoidal banding under moderate sedation. ANESTHESIA, AND BLOOD TRANSFUSION
--- NOTE | 2021-07-14 18:40 | NUR ---
RN NOTE PATIENT IS IN BED WITH HOB AT SEMI FOWLERS POSITION. PATIENT IS ON 6L NC WITH NO SIGNS OF LABORED BREATHING. PATIENT IS AOX2. LWRIST IV ACCESS IS PATENT AND INTACT. BED IS LOCKED IN THE LOWEST POSITION, 3 GUARD RAILS RAISED, CALL RAY WITHIN REACH, AND ALL HOSPITAL SAFETY PRECAUTIONS ARE BEING FOLLOWED. WILL ENDORSE TO AUTOMATIC MAINTAINER RN.
--- NOTE | 2021-07-14 19:15 | NUR ---
RN OPENING NOTES RECEIVED PATIENT ON BED ALERT AND VERBALLY RESPONSIVE. PATIENT ON 6LPM VIA NASAL CANULA , NO SOB NOTED, NO S/S OF DISTRESS NOTED. PATIENT WITH LEFT ANTECUBITAL PERIPHERAL LINE #20. RUNNING WITH NS @ 75CC/HR. ALL SAFETY MEASURE IN PLACE. BED ON LOWEST POSITION, LOCKED BED ALARM ARMED. CALL LIGHT WITHIN REACH. WILL CONTINUE TO MONITOR
[2021-07-14 20:00] VITALS: BP 123/59
[2021-07-14] MEDS: TAMSULOSIN 0.4 MG CAP.SR.24H PO SCH (21:08)
[2021-07-14] MEDS: SIMVASTATIN 20 MG TABLET PO SCH (21:08)
[2021-07-15] VITALS: BP 120/62
[2021-07-15] MEDS ORDERED: QUETIAPINE FUMARATE 25 MG TABLET PO ONE (00:30)
--- NOTE | 2021-07-15 00:35 | NUR ---
RN NOTES CALLED DR. KO'S OFFICE REGARDING PATIENT GOLITELY, PATIENT IS ONLY DRINK 4 CUPS OF GOLITELY, UNABLE TO REACH AT THIS TIME, LEFT MESSAGE. WAITING FOR CALL BACK.
[2021-07-15] MEDS: METOPROLOL TARTRATE 50 MG TABLET PO SCH ×5 (00:50→23:47)
[2021-07-15] MEDS: BLOOD SUGAR DIAGNOSTIC 1 EACH STRIP IN SCH ×5 (00:51→23:52)
[2021-07-15] MEDS: INSULIN REGULAR, HUMAN 100 UNIT/ML 3 ML VIAL SQ PRN ×5 (00:52→23:55)
[2021-07-15 01:39] LABS: BASOPHILS % (AUTO) 0.2 % (0.0-2.0); HEMATOCRIT 37 % (39-51); HEMOGLOBIN 12.4 g/dL (13.5-17.5); LYMPHOCYTES # (AUTO) 0.3 K/uL (0.8-4.8); LYMPHOCYTES % (AUTO) 10.2 % (20.0-44.0); MEAN CORPUSCULAR HGB CONC 33 g/dl (31.0-36.0); MEAN CORPUSCULAR VOLUME 93 fL (80-96); MONOCYTES # (AUTO) 0.1 K/uL (0.1-1.30); MONOCYTES % (AUTO) 3.5 % (2.0-12.0); NEUTROPHILS # (AUTO) 2.9 K/uL (1.8-8.9); NEUTROPHILS % (AUTO) 86.1 % (43.0-81.0); PLATELET COUNT (AUTO) 133 K/uL (150-450); WHITE BLOOD COUNT (AUTO) 3.4 K/uL (4.3-11.0)
--- NOTE | 2021-07-15 02:30 | NUR ---
RN NOTES NOTIFIED VAMPER ERIC, REGARDING PATIENT GOLITELY INTAKE, NO NEW ORDER AT THIS TIME.
[2021-07-15 04:00] VITALS: BP 123/78
--- NOTE | 2021-07-15 06:50 | NUR ---
RN NOTES RECEIVED CALL BACK FROM DR. KO, PER DR. KO, HE WILL CANCEL THE PROCEDURE TODAY.
[2021-07-15 07:12] LABS: BASOPHILS % (AUTO) 0.2 % (0.0-2.0); HEMATOCRIT 36 % (39-51); HEMOGLOBIN 12.3 g/dL (13.5-17.5); LYMPHOCYTES # (AUTO) 0.5 K/uL (0.8-4.8); LYMPHOCYTES % (AUTO) 13.5 % (20.0-44.0); MEAN CORPUSCULAR HGB CONC 34 g/dl (31.0-36.0); MEAN CORPUSCULAR VOLUME 94 fL (80-96); MONOCYTES # (AUTO) 0.1 K/uL (0.1-1.30); NEUTROPHILS # (AUTO) 2.9 K/uL (1.8-8.9); NEUTROPHILS % (AUTO) 83.3 % (43.0-81.0); PLATELET COUNT (AUTO) 134 K/uL (150-450); RED BLOOD CELL COUNT(AUTO) 3.88 MIL/uL (4.5-6.0); WHITE BLOOD COUNT (AUTO) 3.5 K/uL (4.3-11.0)
[2021-07-15 07:31] LABS: CREATININE 1.4 mg/dL (0.6-1.3); POTASSIUM 3.7 mmol/L (3.5-5.1)
--- NOTE | 2021-07-15 07:47 | NUR ---
RAG INSPECTOR OPENING NOTES PATIENT IS IN BED, A/O X3-4, AUSTRIAN SPEAKING, HOB AT SEMI FOWLERS POSITION. PATIENT IS ON 6L NC, O2 SAT OF 97% WITH NO SIGNS OF LABORED BREATHING. L WRIST 22GA IV ACCESS IS PATENT AND INTACT. BED IS LOCKED IN THE LOWEST POSITION, 3 GUARD RAILS RAISED, CALL RAY WITHIN REACH, AND ALL HOSPITAL SAFETY PRECAUTIONS ARE BEING FOLLOWED. WILL CONTINUE TO MONITOR.
[2021-07-15 08:00] VITALS: BP 112/64
[2021-07-15] MEDS: CHOLECALCIFEROL 1,000 UNIT TABLET (VIT D3) PO SCH (09:08)
[2021-07-15] MEDS: busPIRone 5 MG TABLET PO SCH ×2 (09:09→17:38)
[2021-07-15] MEDS: OXYBUTYNIN CHLORIDE 5 MG TABLET PO SCH ×2 (09:09→17:37)
[2021-07-15] MEDS: PANTOPRAZOLE 40 MG VIAL IV SCH ×2 (09:09→21:18)
[2021-07-15] MEDS: FOLIC ACID 1 MG TABLET PO SCH (09:09)
[2021-07-15] MEDS: ALLOPURINOL 100 MG TABLET PO SCH (09:09)
[2021-07-15] MEDS: LIPASE/PROTEASE/AMYLASE 1 EACH CAPSULE.DR PO SCH ×3 (09:11→17:38)
[2021-07-15] MEDS ORDERED: REMDESIVIR (CHARGED) 200 MG, *LOADING DOSE 1 EA in IV NS 0.9% 210 ML IV ONE (12:30)
[2021-07-15] MEDS: DEXAMETHASONE SOD PHOSPHATE 10 MG/ML VIAL IV SCH (13:00)
[2021-07-15 14:19] LABS: ALBUMIN 2.3 g/dL (3.4-5.0); BILIRUBIN,DIRECT 0.3 mg/dL (0.0-0.2); BILIRUBIN,TOTAL 0.6 mg/dL (0.2-1.0); TOTAL PROTEIN, SERUM 6.1 g/dL (6.4-8.2)
[2021-07-15 16:00] VITALS: BP 128/69
[2021-07-15] MEDS ORDERED: IV LR 1000 ML 1,000 ML IV ONE (18:00)
[2021-07-15] MEDS ORDERED: PEG 3350/NA SULF,BICARB,CL/KCL 4,000 ML BOTTLE PO ONE (18:30)
--- NOTE | 2021-07-15 18:44 | NUR ---
NIPPLE THREADER CLOSING NOTES PATIENT REMAIN STABLE THROUGH OUT THE SHIFT. PATIENT ON 6LPM VIA NASAL CANULA , NO SOB NOTED, NO S/S OF DISTRESS NOTED. PATIENT WITH LEFT ANTECUBITAL PERIPHERAL LINE #20. RUNNING WITH LR @50ML/HR. ALL DUE MEDS GIVEN ORDERED. ALL SAFETY MEASURE IN PLACE. BED ON LOWEST POSITION, LOCKED BED ALARM ARMED. CALL LIGHT WITHIN REACH. WILL ENDORSE TO ETHICS MANAGER NURSE.
--- NOTE | 2021-07-15 19:10 | NUR ---
RN NOTES RECEIVED REPORT FROM MORNING NURSE. PATIENT IN BED A/O X3 SLOVENIAN SPEAKING. ON ROOM AIR SATING 95% TOLERATING WELL. WITH IV ACCESS AT R AC #22 PATENT FLUSHES WELL. WITH ONGOING IVF OF D5LR@50CC/HR TOLERATING WELL. FOR COLONOSCOPY DORON IN AM. GOLYTELY STARTED. VITAL SIGNS TAKEN AND RECORDED. ALL SAFETY MEASURES IN PLACE AT ALL TIMES. HOB ELEVATED. CALL LIGHT WITHIN REACH. WILL CONTINUE TO MONITOR.
[2021-07-15] MEDS: TAMSULOSIN 0.4 MG CAP.SR.24H PO SCH (21:19)
[2021-07-15] MEDS: SIMVASTATIN 20 MG TABLET PO SCH (21:19)
[2021-07-16] VITALS: BP 146/82
--- NOTE | 2021-07-16 00:05 | NUR ---
RN NOTES BS 248MG/DL 4 UNITS OF REGULAR INSULIN GIVEN PER SLIDING SCALE. PATIENT SITTING AT THE EDGE OF THE BED. REMIND PATIENT TO TAKE HIS GOLYTELY.
[2021-07-16] MEDS: BLOOD SUGAR DIAGNOSTIC 1 EACH STRIP IN SCH ×3 (05:34→18:01)
[2021-07-16] MEDS: METOPROLOL TARTRATE 50 MG TABLET PO SCH ×3 (05:35→17:35)
[2021-07-16] MEDS: INSULIN REGULAR, HUMAN 100 UNIT/ML 3 ML VIAL SQ PRN ×3 (05:37→18:01)
--- NOTE | 2021-07-16 06:50 | NUR ---
RN NOTES PATIENT REMAINS STABLE. NO DISTRESS NOTED. PATIENT AWAKE ALL NIGHT USING BATHROOM. FINISHED GOLYTELY ORDERED. ALL DUE MEDS GIVEN ORDERED. ALL SAFETY MEASURES IN PLACE AT ALL TIMES. CALL LIGHT WITHIN REACH. HOB ELEVATED. ALL NEEDS ATTENDED. FREQUENT VISUAL MONITORING RENDERED. FOR COLONOSCOPY TODAY. CONSENT @ CHART. ENDORSED
--- NOTE | 2021-07-16 07:43 | NUR ---
BOWLING FLOOR MANAGER OPENING NOTES PATIENT IS IN BED, A/O X3-4, VENEZUELAN SPEAKING, HOB AT SEMI FOWLERS POSITION. PATIENT IS ON 3L NC, WITH NO SIGNS OF LABORED BREATHING. L WRIST 20GA IV ACCESS IS PATENT AND INTACT. BED IS LOCKED IN THE LOWEST POSITION, 3 GUARD RAILS RAISED, CALL RAY WITHIN REACH, AND ALL HOSPITAL SAFETY PRECAUTIONS ARE BEING FOLLOWED. PATIENT IS CURRENTLY NPO PENDING COLONOSCOPY.
[2021-07-16 08:00] VITALS: BP 119/78
[2021-07-16] MEDS: PANTOPRAZOLE 40 MG VIAL IV SCH ×2 (08:53→21:25)
[2021-07-16] MEDS: DEXAMETHASONE SOD PHOSPHATE 10 MG/ML VIAL IV SCH (08:53)
[2021-07-16] MEDS: OXYBUTYNIN CHLORIDE 5 MG TABLET PO SCH ×2 (08:54→17:34)
[2021-07-16] MEDS: CHOLECALCIFEROL 1,000 UNIT TABLET (VIT D3) PO SCH (08:54)
[2021-07-16] MEDS: busPIRone 5 MG TABLET PO SCH ×2 (08:54→17:36)
[2021-07-16] MEDS: FOLIC ACID 1 MG TABLET PO SCH (08:54)
[2021-07-16] MEDS: ALLOPURINOL 100 MG TABLET PO SCH (08:54)
[2021-07-16] MEDS: LIPASE/PROTEASE/AMYLASE 1 EACH CAPSULE.DR PO SCH ×3 (08:54→17:36)
--- NOTE | 2021-07-16 11:14 | NUR ---
ms rn note called to surgery. spoke with charge nurse stated that per dr pat linton to start clear liquid diet and npo after mid night , colonoscopy will be done tomorrow at 0900
--- NOTE | 2021-07-16 11:59 | NUR ---
WOUND CARE CONSULT: REVIEWED CHART, NURSING DOCUMENTATION AND PHOTOS WHICH INDICATE AREAS OF SKIN DISCOLORATION, PRESENT ON ADMISSION. RECOMMENDATIONS MADE FOR SKIN PROTECTION. DISCUSSED WITH NURSING STAFF. PT HAS CURRENT FRANDY SCORE OF 19.
[2021-07-16] MEDS ORDERED: Z GUARD REMEDY 4 OZ OINT TP PRN (12:00)
[2021-07-16] MEDS: Z GUARD REMEDY 4 OZ OINT TP SCH (12:14)
[2021-07-16] MEDS ORDERED: REMDESIVIR (CHARGED) 100 MG in IV NS 0.9% 100 ML IV SCH (12:30)
[2021-07-16 16:00] VITALS: BP 121/73
--- NOTE | 2021-07-16 19:03 | NUR ---
CONCIERGE MANAGER CLOSING NOTES PATIENT IS IN BED, A/O X3-4, DANISH SPEAKING, HOB AT SEMI FOWLERS POSITION. PATIENT IS ON 4L NC, WITH NO SIGNS OF LABORED BREATHING. ALL SCHEDULED MEDICATIONS WERE GIVEN LEFT WRIST 20GA IV ACCESS IS PATENT AND INTACT. BED IS LOCKED IN THE LOWEST POSITION, 3 GUARD RAILS RAISED, CALL RAY WITHIN REACH, AND ALL HOSPITAL SAFETY PRECAUTIONS ARE BEING FOLLOWED. PATIENT IS CURRENTLY NPO PENDING COLONOSCOPY.WILL ENDORSE TO MIGHT NURSE FOR DOMENIC.
--- NOTE | 2021-07-16 19:10 | NUR ---
RN NOTES RECEIVED REPORT FROM MORNING RN. PATIENT A/O X4 TURKISH SPEAKING ABLE TO MAKE NEEDS KNOW WITH SIMPLE SYRIAC. NOT IN DISTRESS NO SOB NOTED AT THIS TIME. WITH OXYGEN INHALATION AT 4LPM VIA NC TOLERATING WELL SATING 94%. WITH IV ACCES AT R AC # 20 PATENT FLUSHES WELL. VITAL SIGNS TAKEN AND RECORDED AFEBRILE. PATIENT IS FOR COLONOSCOPY TODAY CONSENT @ [facility] STILL WAITING OR TO RN L AND D PATIENT. PATIENT ON NPO EXCEPT MEDS ORDERED. ALL SAFETY MEASURES IN PLACE AT ALL TIMES. CALL LIGHT WITHIN REACH. BED ON LOWEST POSITION AND LOCKED. WILL CONTINUE TO MONITOR CLOSELY.
--- NOTE | 2021-07-16 20:20 | NUR ---
RN NOTES CALLED SURGERY DEPT REGARDING COLONOSCOPY TIME AND SAID DR. GARVEY CANCELLED THE PROCEDURE. PATIENT HAS NO ACTIVE BLEEDING AND DOES NOT WANT TO EXPOSE THE STAFF PATIENT IS COVID POSITIVE.
--- NOTE | 2021-07-16 20:30 | NUR ---
RN NOTES FAMILY INFORMED REGARDING THE PROCEDURE THAT HAS BEEN CANCELLED. SPOKE DAUGHTER STEPHANIE AND FAMILY IS UPSET WHAT HAS HAPPENED. EXPLAINED TO THE FAMILY AND WANTED TO TALKED THE DOCTOR. DOCTOR MARE INFORMED THAT THE FAMILY WANT TO TALK TO HIM. CHARGE NURSE AND NURSE LEAD POURER INFORMED ABOUT THE INCIDENT. FAMILY SPOKE THE RN LEAD POURER VIA PHONE. RAPID COVID TEST DONE REQUESTED BY THE FAMILY WITH POSITIVE RESULT. WILL CONTINUE TO MONITOR.
[2021-07-16] MEDS: SIMVASTATIN 20 MG TABLET PO SCH (21:25)
[2021-07-16] MEDS: TAMSULOSIN 0.4 MG CAP.SR.24H PO SCH (21:25)
[2021-07-17] VITALS: BP 145/75
--- NOTE | 2021-07-17 | NUR ---
RN NOTES BS 257MG/DL HUMULIN R 6 UNITS GIVEN PER SLIDING SCALE. WILL CONTINUE TO MONITOR
[2021-07-17] MEDS: BLOOD SUGAR DIAGNOSTIC 1 EACH STRIP IN SCH ×4 (00:36→17:24)
[2021-07-17] MEDS: METOPROLOL TARTRATE 50 MG TABLET PO SCH ×4 (00:38→17:28)
[2021-07-17] MEDS: INSULIN REGULAR, HUMAN 100 UNIT/ML 3 ML VIAL SQ PRN ×4 (00:40→17:27)
--- NOTE | 2021-07-17 06:10 | NUR ---
RN NOTES BS 195MG/DL 3 UNITS REGULAR INSULIN GIVEN PER SLIDING SCALE.
--- NOTE | 2021-07-17 06:46 | NUR ---
RN NOTES PATIENT REMAINS STABLE THIS SHIFT DENIES PAIN AND DISCOMFORT. PATIENT ON CLEAR LIQUIDS. WITH OXYGEN INHALATION AT 4LPM VIA NC TOLERATING WELL. ALL DUE MEDS GIVEN ORDERED. ALL NEEDS ATTENDED PROMPTLY. KEPT CLEAN AND DRY AT ALL TIMES. ALL SAFETY MEASURES IN PLACE AT ALL TIMES. CALL LIGHT WITHIN REACH. BED ON LOWEST POSITION AND LOCKED. ENDORSED
--- NOTE | 2021-07-17 07:20 | NUR ---
RN NOTE REPORT REC'D FR NOC RN. PT IS ASLEEP. AROUSABLE. NO SOB. DENIES PAIN. IV TO RAC PATENT AND INTACT. CALL LIGHT WITHIN REACH. WILL CONTINUE TO MONITOR.
[2021-07-17 08:00] VITALS: BP 104/48
[2021-07-17] MEDS: LIPASE/PROTEASE/AMYLASE 1 EACH CAPSULE.DR PO SCH ×3 (08:00→17:28)
[2021-07-17 08:27] LABS: BASOPHILS % (AUTO) 0.1 % (0.0-2.0); HEMATOCRIT 35 % (39-51); LYMPHOCYTES # (AUTO) 0.4 K/uL (0.8-4.8); LYMPHOCYTES % (AUTO) 9.3 % (20.0-44.0); MEAN CORPUSCULAR HGB CONC 34 g/dl (31.0-36.0); MEAN CORPUSCULAR VOLUME 93 fL (80-96); MONOCYTES # (AUTO) 0.4 K/uL (0.1-1.30); MONOCYTES % (AUTO) 7.9 % (2.0-12.0); NEUTROPHILS # (AUTO) 3.8 K/uL (1.8-8.9); NEUTROPHILS % (AUTO) 82.7 % (43.0-81.0); PLATELET COUNT (AUTO) 86 K/uL (150-450); RED BLOOD CELL COUNT(AUTO) 3.79 MIL/uL (4.5-6.0); WHITE BLOOD COUNT (AUTO) 4.6 K/uL (4.3-11.0)
[2021-07-17 09:21] LABS: CREATININE 1.4 mg/dL (0.6-1.3); POTASSIUM 3.7 mmol/L (3.5-5.1)
[2021-07-17] MEDS: DEXAMETHASONE SOD PHOSPHATE 10 MG/ML VIAL IV SCH (09:26)
[2021-07-17] MEDS: busPIRone 5 MG TABLET PO SCH ×2 (09:28→17:28)
[2021-07-17] MEDS: PANTOPRAZOLE 40 MG VIAL IV SCH ×2 (09:28→21:31)
[2021-07-17] MEDS: FOLIC ACID 1 MG TABLET PO SCH (09:29)
[2021-07-17] MEDS: OXYBUTYNIN CHLORIDE 5 MG TABLET PO SCH ×2 (09:29→17:28)
[2021-07-17] MEDS: ALLOPURINOL 100 MG TABLET PO SCH (09:31)
[2021-07-17] MEDS: CHOLECALCIFEROL 1,000 UNIT TABLET (VIT D3) PO SCH (09:31)
[2021-07-17] MEDS: Z GUARD REMEDY 4 OZ OINT TP SCH (09:32)
[2021-07-17 10:19] LABS: ABG BASE EXCESS -0.1 mmol/L; ABG OXYGEN SATURATION 85.5 % (92.0-98.5); ABG PCO2 26.6 mmHg (35.0-45.0); ABG PH 7.528 (7.350-7.450); ABG PO2 44.4 mmHg (75.0-100.0); AaDO2 73.5 mmHg; COHb 0.8 % (0.5-1.5); MetHb 0.3 % (0.0-1.5); O2Hb 84.6 % (94.0-97.0); SITE, ABG Right Radial; VENT MODE, BG room air
[2021-07-17] MEDS: ACETAMINOPHEN 325 MG TABLET PO PRN (12:44)
[2021-07-17 14:13] LABS: ALBUMIN 2.3 g/dL (3.4-5.0); BILIRUBIN,DIRECT 0.4 mg/dL (0.0-0.2); BILIRUBIN,TOTAL 0.8 mg/dL (0.2-1.0); TOTAL PROTEIN, SERUM 6.1 g/dL (6.4-8.2)
--- NOTE | 2021-07-17 14:28 | NUR ---
RN NOTE PT ASLEEP. NO SOB. ORAL TEMP-97.7 AFTER TYLENOL PO AND COOLING MEASURES DONE. PT INSTRUCTED TO KEEP NC ON. VERBALIZED UNDERSTANDING.
[2021-07-17 16:00] VITALS: BP 126/107
[2021-07-17] MEDS ORDERED: REMDESIVIR (CHARGED) 200 MG, *LOADING DOSE 1 EA in IV NS 0.9% 210 ML IV ONE (16:00)
--- NOTE | 2021-07-17 18:43 | NUR ---
RN NOTE PTS BEEN DOZING ON AND OFF. IN NO ACUTE RESPIRATORY DISTRESS. NO C/O PAIN. PT ABLE TO TAKE MEDS BY MOUTH WITHOUT DIFFICULTY. NEEDS ATTENDED PROMPTLY. SAFETY AND RESP. ISOLATION PRECAUTIONS OBSERVED. CALL LIGHT WITHIN REACH. WILL ENDORSE TO NOC RN FOR DOMENIC.
--- NOTE | 2021-07-17 19:10 | NUR ---
RN NOTES RECEIVE REPORT FROM MORNING RN. PATIENT IN BED A/O X4 CUBAN SPEAKING UNDERSTAND SIMPLE CYPRIOT. WITH OXYGEN INHALATION AT 4LPM VIA NC TOLERATING WELL SATING 96%. WITH IV ACCESS AT R AC #20 FLUSHES WELL. ALL SAFETY MEASURES IN PLACE AT ALL TIMES. HOB ELEVATED. CALL LIGHT WITHIN REACH. BED ON LOWEST POSTION AND LOCKED. PATIENT IS COVID +. WILL CONTINUE TO MONITOR.
[2021-07-17] MEDS: SIMVASTATIN 20 MG TABLET PO SCH (21:31)
[2021-07-17] MEDS: TAMSULOSIN 0.4 MG CAP.SR.24H PO SCH (21:31)
[2021-07-18] VITALS: BP 133/79
--- NOTE | 2021-07-18 00:30 | NUR ---
RN NOTES BS 247 MG/DL. 4 UNITS OF REGULAR INSULIN SLIDING SCALE. PATIENT NOT IN DISTRESS AT THIS TIME
[2021-07-18] MEDS: BLOOD SUGAR DIAGNOSTIC 1 EACH STRIP IN SCH ×5 (00:46→23:58)
[2021-07-18] MEDS: INSULIN REGULAR, HUMAN 100 UNIT/ML 3 ML VIAL SQ PRN ×4 (00:48→18:24)
[2021-07-18] MEDS: METOPROLOL TARTRATE 50 MG TABLET PO SCH ×5 (00:49→23:54)
[2021-07-18] MEDS: ACETAMINOPHEN 325 MG TABLET PO PRN (01:21)
--- NOTE | 2021-07-18 06:45 | NUR ---
RN NOTES PATIENT REMAINS STABLE THIS SHIFT NO SIGNIFICANT CHANGES NOTED. ALL DUE MEDS GIVEN ORDERED. PATIENT STILL ON OXYGEN INHALATION AT 4LPM VIA NC TOLERATING WELL SATING 96-98%. ALL SAFETY MEASURES IN PLACE AT ALL TIMES. HOB ELEVATED. CALL LIGHT WITHIN REACH. BED ON LOWEST POSITION AND LOCKED. ALL NEEDS ATTENDED PROMPTLY. ENDORSED
--- NOTE | 2021-07-18 07:45 | NUR ---
RN OPENING NOTES PATIENT IS IN BED, A/O X3-4, MALAGASY SPEAKING, HOB AT SEMI FOWLERS POSITION. PATIENT IS ON 3L NC, WITH NO SIGNS OF LABORED BREATHING. L WRIST 20GA IV ACCESS IS PATENT AND INTACT. BED IS LOCKED IN THE LOWEST POSITION, 3 GUARD RAILS RAISED, CALL RAY WITHIN REACH, AND ALL SAFETY MEASURES IN PLACE.
[2021-07-18 08:00] VITALS: BP 117/69
[2021-07-18 08:16] LABS: BASOPHILS % (AUTO) 0.1 % (0.0-2.0); HEMATOCRIT 33 % (39-51); HEMOGLOBIN 11.3 g/dL (13.5-17.5); LYMPHOCYTES # (AUTO) 0.3 K/uL (0.8-4.8); LYMPHOCYTES % (AUTO) 9.3 % (20.0-44.0); MEAN CORPUSCULAR HGB CONC 34 g/dl (31.0-36.0); MEAN CORPUSCULAR VOLUME 93 fL (80-96); MONOCYTES # (AUTO) 0.3 K/uL (0.1-1.30); MONOCYTES % (AUTO) 9.2 % (2.0-12.0); NEUTROPHILS # (AUTO) 2.9 K/uL (1.8-8.9); NEUTROPHILS % (AUTO) 81.4 % (43.0-81.0); RED BLOOD CELL COUNT(AUTO) 3.58 MIL/uL (4.5-6.0); WHITE BLOOD COUNT (AUTO) 3.5 K/uL (4.3-11.0)
[2021-07-18 09:03] LABS: PLATELET COUNT (AUTO) 50 K/uL (150-450)
[2021-07-18] MEDS: Z GUARD REMEDY 4 OZ OINT TP SCH (09:08)
[2021-07-18] MEDS: ALLOPURINOL 100 MG TABLET PO SCH (09:09)
[2021-07-18] MEDS: DEXAMETHASONE SOD PHOSPHATE 10 MG/ML VIAL IV SCH (09:09)
[2021-07-18] MEDS: FOLIC ACID 1 MG TABLET PO SCH (09:09)
[2021-07-18] MEDS: LIPASE/PROTEASE/AMYLASE 1 EACH CAPSULE.DR PO SCH ×3 (09:09→17:36)
[2021-07-18] MEDS: PANTOPRAZOLE 40 MG VIAL IV SCH ×2 (09:09→21:19)
[2021-07-18] MEDS: CHOLECALCIFEROL 1,000 UNIT TABLET (VIT D3) PO SCH (09:10)
[2021-07-18] MEDS: busPIRone 5 MG TABLET PO SCH ×2 (09:10→16:46)
[2021-07-18] MEDS: OXYBUTYNIN CHLORIDE 5 MG TABLET PO SCH ×2 (09:10→16:46)
[2021-07-18 09:21] LABS: BILIRUBIN,DIRECT 0.5 mg/dL (0.0-0.2); BILIRUBIN,TOTAL 0.9 mg/dL (0.2-1.0); CALCIUM, SERUM 7.6 mg/dL (8.5-10.1); CREATININE 1.1 mg/dL (0.6-1.3); POTASSIUM 3.2 mmol/L (3.5-5.1); TOTAL PROTEIN, SERUM 5.6 g/dL (6.4-8.2)
[2021-07-18] MEDS ORDERED: POTASSIUM CHLORIDE 20 MEQ TAB.PRT.SR PO ONE (10:00)
[2021-07-18] MEDS ORDERED: CEFTRIAXONE 1 G in IV D5W 50 ML IV SCH (15:30)
--- NOTE | 2021-07-18 15:40 | NUR ---
RN NOTES NOTIFIED MD OF PT PLATELET LEVEL OF 50. NO ORDERS AT THIS TIME.
[2021-07-18 16:00] VITALS: BP 118/65
[2021-07-18] MEDS ORDERED: REMDESIVIR (CHARGED) 100 MG in IV NS 0.9% 100 ML IV SCH (16:00)
[2021-07-18] MEDS: ALPRAZOLAM 0.5 MG TABLET PO PRN (16:46)
[2021-07-18] MEDS: FUROSEMIDE 20 MG/2 ML VIAL IV SCH (16:48)
--- NOTE | 2021-07-18 19:33 | NUR ---
RN CLOSING NOTES PATIENT IS IN BED, A/O X3-4, MONTENEGRIN SPEAKING, HOB AT SEMI FOWLERS POSITION. PATIENT IS ON 8L SIMPLE MASK WITH NO SIGNS OF LABORED BREATHING. ALL SCHEDULED MEDICATIONS WERE GIVEN. LEFT WRIST 20GA IV ACCESS IS PATENT AND INTACT. BED IS LOCKED IN THE LOWEST POSITION, 3 GUARD RAILS RAISED, CALL RAY WITHIN REACH, AND ALL HOSPITAL SAFETY PRECAUTIONS ARE BEING FOLLOWED. PATIENT IS CURRENTLY ON CLEAR LIQUED DIET PENDING COLONOSCOPY. WILL ENDORSE TO NIGHT NURSE FOR DOMENIC.
[2021-07-18 20:36] LABS: BAND % (MANUAL) 5 % (0.0-5.0); LYMPHOCYTES % (MANUAL) 10 % (16-48); MONOCYTES % (MANUAL) 5 % (0-11.0); NEUTROPHILS % (MANUAL) 80 (42-76)
[2021-07-18] MEDS: TAMSULOSIN 0.4 MG CAP.SR.24H PO SCH (21:19)
[2021-07-18] MEDS: SIMVASTATIN 20 MG TABLET PO SCH (21:20)
[2021-07-18] MEDS: CEFEPIME 2 GM in IV D5W 100 ML IV SCH (21:23)
[2021-07-19] MEDS: ALPRAZOLAM 0.5 MG TABLET PO PRN ×3 (01:37→22:28)
[2021-07-19 04:00] VITALS: BP 101/41
[2021-07-19] MEDS: CEFEPIME 2 GM in IV D5W 100 ML IV SCH ×3 (05:09→20:27)
[2021-07-19] MEDS: BLOOD SUGAR DIAGNOSTIC 1 EACH STRIP IN SCH ×3 (05:24→17:35)
[2021-07-19] MEDS: INSULIN REGULAR, HUMAN 100 UNIT/ML 3 ML VIAL SQ PRN ×4 (05:25→18:10)
[2021-07-19] MEDS: METOPROLOL TARTRATE 50 MG TABLET PO SCH ×3 (06:00→17:34)
--- NOTE | 2021-07-19 06:30 | NUR ---
RN NOTES, METOPROLOL NOT ADMINISTERED DUE TO LOW BP.
--- NOTE | 2021-07-19 07:20 | NUR ---
RN CLOSING NOTES, PATIENT IN BED, ASLEEP AROUSES TO VERBAL STIMULI, ON 8L SIMPLE MASK WITH NO SIGNS OF DISTRESS OR LABORED BREATHING, LEFT WRIST 20GA IV ACCESS IS PATENT AND INTACT, BED IS LOCKED IN THE LOWEST POSITION, S/R OF BED X2 UP, CALL LIGHT WITHIN REACH, ALL SAFETY PRECAUTIONS IN PLACED, ISOLATION PRECAUTIONS IN PLACE, ENDORSED TO KWABENA RESENDIZ FOR CONTINUATION OF CARE.
--- NOTE | 2021-07-19 07:20 | NUR ---
RN NOTES, NO SIGNIFICANT CHANGE IN CONDITION DURING THE NIGHT.
[2021-07-19 08:27] LABS: HEMATOCRIT 40 % (39-51); HEMOGLOBIN 13.4 g/dL (13.5-17.5); LYMPHOCYTES # (AUTO) 0.6 K/uL (0.8-4.8); LYMPHOCYTES % (AUTO) 7.5 % (20.0-44.0); MEAN CORPUSCULAR HGB CONC 34 g/dl (31.0-36.0); MEAN CORPUSCULAR VOLUME 94 fL (80-96); MONOCYTES # (AUTO) 0.7 K/uL (0.1-1.30); MONOCYTES % (AUTO) 8.1 % (2.0-12.0); NEUTROPHILS # (AUTO) 7.2 K/uL (1.8-8.9); NEUTROPHILS % (AUTO) 84.4 % (43.0-81.0); RED BLOOD CELL COUNT(AUTO) 4.23 MIL/uL (4.5-6.0); WHITE BLOOD COUNT (AUTO) 8.5 K/uL (4.3-11.0)
[2021-07-19] MEDS ORDERED: TICAGRELOR 90 MG TABLET PO SCH (09:00)
[2021-07-19] MEDS ORDERED: ASPIRIN EC 81 MG TABLET.DR PO SCH (09:00)
[2021-07-19 09:03] LABS: ALBUMIN 2.3 g/dL (3.4-5.0); BILIRUBIN,DIRECT 0.6 mg/dL (0.0-0.2); BILIRUBIN,TOTAL 1.2 mg/dL (0.2-1.0); CALCIUM, SERUM 7.8 mg/dL (8.5-10.1); CREATININE 1.5 mg/dL (0.6-1.3); POTASSIUM 3.7 mmol/L (3.5-5.1); TOTAL PROTEIN, SERUM 6.7 g/dL (6.4-8.2)
[2021-07-19] MEDS: DEXAMETHASONE SOD PHOSPHATE 10 MG/ML VIAL IV SCH (09:20)
[2021-07-19] MEDS: FUROSEMIDE 20 MG/2 ML VIAL IV SCH (09:20)
[2021-07-19] MEDS: ALLOPURINOL 100 MG TABLET PO SCH (09:21)
[2021-07-19] MEDS: CHOLECALCIFEROL 1,000 UNIT TABLET (VIT D3) PO SCH (09:21)
[2021-07-19] MEDS: OXYBUTYNIN CHLORIDE 5 MG TABLET PO SCH ×2 (09:21→17:35)
[2021-07-19] MEDS: LIPASE/PROTEASE/AMYLASE 1 EACH CAPSULE.DR PO SCH ×3 (09:21→17:35)
[2021-07-19] MEDS: FOLIC ACID 1 MG TABLET PO SCH (09:21)
[2021-07-19] MEDS: busPIRone 5 MG TABLET PO SCH ×2 (09:22→17:35)
[2021-07-19] MEDS: PANTOPRAZOLE 40 MG VIAL IV SCH ×2 (09:22→20:28)
[2021-07-19] MEDS: Z GUARD REMEDY 4 OZ OINT TP SCH (09:23)
[2021-07-19 09:31] LABS: D-DIMER 3.15 mg/L(FEU (0.17-0.50)
[2021-07-19 09:56] LABS: THYROID STIMULATING HORMONE 0.662 uIU/mL (0.358-3.74)
[2021-07-19 10:33] LABS: C-REACTIVE PROTEIN 12.2 mg/dL (0.0-0.9)
[2021-07-19 12:00] VITALS: BP 124/81
[2021-07-19] MEDS ORDERED: REMDESIVIR (CHARGED) 200 MG, *LOADING DOSE 1 EA in IV NS 0.9% 210 ML IV ONE (17:00)
--- NOTE | 2021-07-19 19:12 | NUR ---
RN CLOSING NOTES PATIENT IN BED, ASLEEP AROUSES TO VERBAL STIMULI, ON 8L SIMPLE MASK WITH NO SIGNS OF DISTRESS OR LABORED BREATHING, LEFT WRIST 20GA IV ACCESS IS PATENT AND INTACT, BED IS LOCKED IN THE LOWEST POSITION, S/R OF BED X2 UP, CALL LIGHT WITHIN REACH, ALL SAFETY PRECAUTIONS IN PLACE, ISOLATION PRECAUTIONS IN PLACE, WILL ENDORSE TO ONCOMING PUMP SERVICER HELPER RN FOR CONTINUATION OF CARE.
[2021-07-19 19:32] LABS: PLATELET COUNT (AUTO) 90 K/uL (150-450)
[2021-07-19] MEDS: TAMSULOSIN 0.4 MG CAP.SR.24H PO SCH (21:03)
[2021-07-19] MEDS: SIMVASTATIN 20 MG TABLET PO SCH (21:04)
[2021-07-19 22:00] VITALS: BP 156/84
[2021-07-19] MEDS ORDERED: IV NS 0.9% 500 ML IV ONE (22:00)
[2021-07-19 22:12] LABS: BAND % (MANUAL) 4 % (0.0-5.0); LYMPHOCYTES % (MANUAL) 10 % (16-48); MONOCYTES % (MANUAL) 3 % (0-11.0); NEUTROPHILS % (MANUAL) 83 (42-76)
--- NOTE | 2021-07-19 22:35 | NUR ---
RN NOTES, PATIENT ANXIOUS, RESTLESSNESS AND UNABLE TO SLEEP, REQUEST XANAX PRN, XANAX ADMINISTERED, WILL CONTINUE TO MONITOR CLOSELY, O2 WNL, NO ACUTE DISTRESS NOTED.
[2021-07-20] MEDS: BLOOD SUGAR DIAGNOSTIC 1 EACH STRIP IN SCH ×4 (01:06→17:19)
[2021-07-20] MEDS: INSULIN REGULAR, HUMAN 100 UNIT/ML 3 ML VIAL SQ PRN ×4 (01:07→17:21)
[2021-07-20] MEDS: METOPROLOL TARTRATE 50 MG TABLET PO SCH ×4 (01:08→17:10)
[2021-07-20 04:00] VITALS: BP 106/73
[2021-07-20] MEDS: CEFEPIME 2 GM in IV D5W 100 ML IV SCH ×3 (04:48→21:02)
--- NOTE | 2021-07-20 07:10 | NUR ---
RN CLOSING NOTES, PATIENT REMAINS ON 8L SIMPLE MASK WITH NO SIGNS OF DISTRESS OR LABORED BREATHING, LEFT WRIST 20GA IV ACCESS IS PATENT AND INTACT, BED LOCKED IN THE LOWEST POSITION, S/R OF BED X2 UP, CALL LIGHT WITHIN REACH, ALL SAFETY PRECAUTIONS IN PLACED, ISOLATION PRECAUTIONS IN PLACE, HELD METOPROLOL THIS MORNING FOR SBP 101, ENDORSED TO DAYANA Figueroa RN FOR CONTINUATION OF CARE.
--- NOTE | 2021-07-20 07:49 | NUR ---
RN MS OPENING NOTES PATIENT IS IN BED, A/O X3-4, DANISH SPEAKING, HOB AT SEMI FOWLERS POSITION. PATIENT IS ON 8L OF O2 VIA SIMPLE MASK, WITH NO SIGNS OF LABORED BREATHING. R AC 20GA IV ACCESS IS PATENT AND INTACT. BED IS LOCKED IN THE LOWEST POSITION, 3 GUARD RAILS RAISED, CALL RAY WITHIN REACH, AND ALL SAFETY MEASURES IN PLACE. WILL CONTINUE TO MONITOR.
[2021-07-20] MEDS: PANTOPRAZOLE 40 MG VIAL IV SCH ×2 (08:53→21:01)
[2021-07-20] MEDS: busPIRone 5 MG TABLET PO SCH ×2 (08:53→16:07)
[2021-07-20] MEDS: FOLIC ACID 1 MG TABLET PO SCH (08:53)
[2021-07-20] MEDS: OXYBUTYNIN CHLORIDE 5 MG TABLET PO SCH ×2 (08:53→16:07)
[2021-07-20] MEDS: ALLOPURINOL 100 MG TABLET PO SCH (08:54)
[2021-07-20] MEDS: DEXAMETHASONE SOD PHOSPHATE 10 MG/ML VIAL IV SCH (08:54)
[2021-07-20] MEDS: CHOLECALCIFEROL 1,000 UNIT TABLET (VIT D3) PO SCH (08:54)
[2021-07-20] MEDS: LIPASE/PROTEASE/AMYLASE 1 EACH CAPSULE.DR PO SCH ×3 (08:54→17:09)
[2021-07-20 09:09] LABS: ALBUMIN 2.3 g/dL (3.4-5.0); BILIRUBIN,TOTAL 1.4 mg/dL (0.2-1.0); CALCIUM, SERUM 8.1 mg/dL (8.5-10.1); CREATININE 1.5 mg/dL (0.6-1.3); POTASSIUM 3.9 mmol/L (3.5-5.1); TOTAL PROTEIN, SERUM 6.5 g/dL (6.4-8.2)
[2021-07-20] MEDS: Z GUARD REMEDY 4 OZ OINT TP SCH (09:11)
[2021-07-20] MEDS: ALPRAZOLAM 0.5 MG TABLET PO PRN ×2 (09:14→17:09)
[2021-07-20 10:20] LABS: BILIRUBIN,DIRECT 0.5 mg/dL (0.0-0.2)
[2021-07-20 12:00] VITALS: BP 112/69
[2021-07-20 12:58] LABS: BASOPHILS % (AUTO) 0.1 % (0.0-2.0); HEMATOCRIT 36 % (39-51); LYMPHOCYTES # (AUTO) 0.3 K/uL (0.8-4.8); LYMPHOCYTES % (AUTO) 4.1 % (20.0-44.0); MEAN CORPUSCULAR HGB CONC 33 g/dl (31.0-36.0); MEAN CORPUSCULAR VOLUME 92 fL (80-96); MONOCYTES # (AUTO) 0.6 K/uL (0.1-1.30); MONOCYTES % (AUTO) 8.5 % (2.0-12.0); NEUTROPHILS # (AUTO) 5.8 K/uL (1.8-8.9); NEUTROPHILS % (AUTO) 87.3 % (43.0-81.0); PLATELET COUNT (AUTO) 75 K/uL (150-450); RED BLOOD CELL COUNT(AUTO) 3.87 MIL/uL (4.5-6.0); WHITE BLOOD COUNT (AUTO) 6.6 K/uL (4.3-11.0)
--- NOTE | 2021-07-20 15:56 | NUR ---
RN NOTES ESTABLISHED MIDLINE SAGAR 18G. MIDLINE IS PATENT AND FLUSHES WELL. WILL CONTINUE TO MONITOR.
[2021-07-20] MEDS: REMDESIVIR (CHARGED) 100 MG in IV NS 0.9% 100 ML IV SCH (17:21)
--- NOTE | 2021-07-20 18:34 | NUR ---
RN CLOSING NOTES, PATIENT REMAINED STABLE THROUGHOUT THE SHIFT. A/O X 2-3 WITH EPISODES OF CONFUSION AND WORD SEARCHING. PATIENT ON 8L VIA SIMPLE MASK WITH NO SIGNS OF DISTRESS OR LABORED BREATHING, BREATHING PATTERNS SYMMETRICAL, NO SIGNS OF CHEST DISCOMFORT. RIGHT ANTECUBITAL 20GA IV ACCESS IS PATENT AND INTACT, ESTABLISHED SAGAR MIDLINE 18GA IV ACCESS. MIDLINE FLUSHES WELL AND INTACT. BED LOCKED AND IN THE LOWEST POSITION, S/R OF BED X2 UP, CALL LIGHT WITHIN REACH, ALL SAFETY PRECAUTIONS IN PLACED, ISOLATION PRECAUTIONS IN PLACE. WILL ENDORSE TO MANAGER STRATEGIC PARTNERSHIPS NURSE.
--- NOTE | 2021-07-20 19:32 | NUR ---
RN NOTE RECEIVED PATIENT IN BED, SLEEPING, EASILY AROUSABLE. AOX3. BREATHING NOTED WITH MILD SHORTNESS OF BREATH. NOTED WITH SIMPLE MASK AT 10L/MIN. HOB ELEVATED 35 DEGREES. SKIN WARM AND DRY. NOTED WITH SAGAR MIDLINE. PATENT. NO INFILTRATION NOTED. NOTED WITH RIGHT AC 18G. PROVIDED FLUIDS. BED LOW, IN LOCKED POSITION. CALL LIGHT WITHIN REACH.
[2021-07-20 20:00] VITALS: BP 124/67
--- NOTE | 2021-07-20 20:10 | NUR ---
RN NOTE PATIENT HAVING DIFFICULTY BREATHING. ON MASK AT 10L/MIN. PATIENT ON PHONE AND TALKING TO DAUGHTER. OXYGEN SATURATION DROPS TO 80'S 70'S. APPLIED NON-REBREATHER MASK AT 15L/MIN. REMINDED PATIENT AND DAUGHTER THAT WHEN HE TALKS, HE BECOMES SOB. PATIENT STILL TALKING TO DAUGHTER ON THE PHONE. OXYGEN SATURATION OF 88 PERCENT AT THIS TIME. WILL CONTINUE TO MONITOR.
[2021-07-20] MEDS: SIMVASTATIN 20 MG TABLET PO SCH (21:01)
[2021-07-20] MEDS: TAMSULOSIN 0.4 MG CAP.SR.24H PO SCH (21:01)
[2021-07-21] VITALS (15 sets, daily range): BP systolic 102–140; BP diastolic 57–89
[2021-07-21] MEDS: BLOOD SUGAR DIAGNOSTIC 1 EACH STRIP IN SCH ×5 (00:37→23:54)
[2021-07-21] MEDS: INSULIN REGULAR, HUMAN 100 UNIT/ML 3 ML VIAL SQ PRN ×5 (00:38→23:55)
[2021-07-21] MEDS: ALPRAZOLAM 0.5 MG TABLET PO PRN ×3 (00:38→12:16)
[2021-07-21] MEDS: METOPROLOL TARTRATE 50 MG TABLET PO SCH ×4 (00:39→17:45)
--- NOTE | 2021-07-21 00:40 | NUR ---
RN NOTE PATIENT FEELING ANXIOUS, LEADING TO SHORTNESS OF BREATH. ADMINISTERED XANAX 0.5 MG PER MD ORDER. PATIENT OFFERED FLUIDS FOR HYDRATION, GAVE EXTRA BLANKETS, ASSISTED WTH REPOSITIONING. WILL CONTINUE TO MONITOR.
[2021-07-21] MEDS: ACETAMINOPHEN 325 MG TABLET PO PRN (01:16)
--- NOTE | 2021-07-21 01:23 | NUR ---
RN NOTE PATIENT COMPLAINING OF GENERALIZED BODY PAIN. ADMINISTERED TYLENOL 650 MG PER MD ORDER. ASSISTED WITH REPOSITIONING. WILL CONTINUE TO MONITOR.
--- NOTE | 2021-07-21 03:00 | NUR ---
RN NOTE PATIENT WITH EPISODE OF REMOVING MASK. OXYGEN SATURATION FALLS BELOW 70 PERCENT. PATIENT REMAINS ON NON-REBREATHER MASK AT 15L/MIN. OXYGEN SLOWLY RISES TO 85-90 PERCENT. EXPLAINED TO PATIENT THE NEEDS FOR OXYGEN. ADVISED TO PRONE BUT PATIENT REFUSES. SLEEPING ON HIS RIGHT SIDE AT THIS TIME. WILL CONTINUE TO MONITOR.
[2021-07-21] MEDS: CEFEPIME 2 GM in IV D5W 100 ML IV SCH ×3 (05:22→20:25)
[2021-07-21 08:06] LABS: IMMUNOGLOBULIN A, SERUM 264 mg/dL (61-437); IMMUNOGLOBULIN G, SERUM 835 mg/dL (603-1613); IMMUNOGLOBULIN M, SERUM 89 mg/dL (20-172)
[2021-07-21] MEDS: LIPASE/PROTEASE/AMYLASE 1 EACH CAPSULE.DR PO SCH ×3 (09:03→17:00)
[2021-07-21] MEDS: DEXAMETHASONE SOD PHOSPHATE 10 MG/ML VIAL IV SCH (09:03)
[2021-07-21] MEDS: FOLIC ACID 1 MG TABLET PO SCH (09:03)
[2021-07-21] MEDS: OXYBUTYNIN CHLORIDE 5 MG TABLET PO SCH ×2 (09:03→17:45)
[2021-07-21] MEDS: CHOLECALCIFEROL 1,000 UNIT TABLET (VIT D3) PO SCH (09:03)
[2021-07-21] MEDS: ALLOPURINOL 100 MG TABLET PO SCH (09:03)
[2021-07-21] MEDS: busPIRone 5 MG TABLET PO SCH ×2 (09:04→17:45)
[2021-07-21] MEDS: PANTOPRAZOLE 40 MG VIAL IV SCH ×2 (09:04→20:25)
[2021-07-21] MEDS: Z GUARD REMEDY 4 OZ OINT TP SCH (09:17)
[2021-07-21 09:28] LABS: ABG BASE EXCESS -1.3 mmol/L; ABG OXYGEN SATURATION 81.4 % (92.0-98.5); ABG PCO2 30.1 mmHg (35.0-45.0); ABG PH 7.469 (7.350-7.450); ABG PO2 45.3 mmHg (75.0-100.0); AaDO2 637.6 mmHg; MetHb 0.3 % (0.0-1.5); O2Hb 80.3 % (94.0-97.0); SITE, ABG Right Radial; VENT MODE, BG NRB
--- NOTE | 2021-07-21 09:56 | NUR ---
PT ARRIVED IN ICU VIA BED FOR LOW SATS. PT NOW ON HI FLOW NASAL CANNULA 40L 100% AND NON REBREATHER MASK AT 15L. PT REMOVES MASK AND IS UNCOOPERATIVE. PT IS ALERT AND [facility] ALTHOUGH DOESN'T FOLLOW DIRECTIONS. PT HAS BRIEF ON. PT IN COVID ISOLATION. PT INSTRUCTED IN [place] TO KEEP OXYGEN ON TO AVOID GETTING INTUBATED, PT AGREED BUT CONTINUES TO TAKE OXYGEN OFF. WILL OBTAIN RESTRAINT ORDER TO PROTECT PATIENT. PT CHECKED ON HOURLY AND PRN BY NURSING STAFF.
[2021-07-21 10:07] LABS: *ANA ANTI-CENTROMERE B AB <0.2 AI (0.0-0.9); *ANA ANTI-DNA(DS) AB, QN <1 IU/mL (0-9); *ANA ANTI-JO-1 <0.2 AI (0.0-0.9); *ANA ANTICHROMATIN ANTIBODY <0.2 AI (0.0-0.9); *ANA RNP ANTIBODIES <0.2 AI (0.0-0.9); *ANA SJOGREN'S ANTI-SS-A <0.2 AI (0.0-0.9); *ANA SJOGREN'S ANTI-SS-B <0.2 AI (0.0-0.9); *ANAANTI-SCLERODERMA-70 AB <0.2 AI (0.0-0.9); *ANASMITH AB <0.2 AI (0.0-0.9)
[2021-07-21 11:31] LABS: BASOPHILS # (AUTO) 0.1 K/uL (0.0-0.2); HEMATOCRIT 38 % (39-51); HEMOGLOBIN 12.7 g/dL (13.5-17.5); LYMPHOCYTES # (AUTO) 0.2 K/uL (0.8-4.8); LYMPHOCYTES % (AUTO) 2.4 % (20.0-44.0); MEAN CORPUSCULAR HGB CONC 33 g/dl (31.0-36.0); MEAN CORPUSCULAR VOLUME 93 fL (80-96); MONOCYTES # (AUTO) 0.5 K/uL (0.1-1.30); NEUTROPHILS # (AUTO) 8.4 K/uL (1.8-8.9); NEUTROPHILS % (AUTO) 91.6 % (43.0-81.0); PLATELET COUNT (AUTO) 151 K/uL (150-450); RED BLOOD CELL COUNT(AUTO) 4.08 MIL/uL (4.5-6.0); WHITE BLOOD COUNT (AUTO) 9.1 K/uL (4.3-11.0)
[2021-07-21 13:02] LABS: ALBUMIN 2.1 g/dL (3.4-5.0); BILIRUBIN,DIRECT 0.8 mg/dL (0.0-0.2); BILIRUBIN,TOTAL 1.3 mg/dL (0.2-1.0); CALCIUM, SERUM 8.3 mg/dL (8.5-10.1); CREATININE 1.4 mg/dL (0.6-1.3); POTASSIUM 3.7 mmol/L (3.5-5.1); TOTAL PROTEIN, SERUM 6.4 g/dL (6.4-8.2)
[2021-07-21] MEDS: IV NS 0.9% 250 ML IV PRN (13:02)
[2021-07-21 14:06] LABS: *SPE A/G RATIO 0.8 (0.7-1.7); *SPE ALPHA-1-GLOBULIN 0.4 g/dL (0.0-0.4); *SPE ALPHA-2-GLOBULIN 1.1 g/dL (0.4-1.0); *SPE BETA GLOBULIN 0.9 g/dL (0.7-1.3); *SPE M-SPIKE Not Observed g/dL (Not Observed)
[2021-07-21] MEDS: REMDESIVIR (CHARGED) 100 MG in IV NS 0.9% 100 ML IV SCH (16:59)
--- NOTE | 2021-07-21 19:10 | NUR ---
TREATING AND PUMPING SUPERVISOR NOTE RECEIVED PATIENT ALERT ORIETNEDX2-3,ANXIOUS,RESTLESS,VERBALLY RESPONSIVE ON HIGH FLOW OXYGEN 40L FIO2:100% AND NON REBREATHER MASK 15L O2:90%.IV SITE IS ON RIGHT UPPER ARM MIDLINE AND AND LEFT AC INTACT PATENT,SAFETY MEASURE IMPLEMENT,HEAD OF THE BED ELEVATED,SAFETY MEASURE IMPLEMENT,BED IN LOW POSITION AND LOCKED,SOFT BILATERAL RESTRAINS IN PLACE,WILL CHECK EVERY 15MINS FOR SKIN BREAKDOWN AND BLOOD CIRCULATION,CONTINUE TO MONITOR.
--- NOTE | 2021-07-21 19:24 | NUR ---
END OF SHIFT NOTE: PT IS RESTRAINED WITH BILAT WRIST RESTRAINTS, PT STILL ABLE TO REMOVE OXYGEN. PT REMINDED SEVERAL TIMES TO KEEP OXYGEN ON TO HELP KEEP HIS O2 SATS UP AND NOT GET INTUBATED. PT GIVEN SIPS OF ICE WATER WITH EVERY VISIT IN THE ROOM. PT WAS INCONTINENT X4 THIS SHIFT. PT CHECKED ON HOURLY AND PRN BY NURSING STAFF.
[2021-07-21] MEDS: TAMSULOSIN 0.4 MG CAP.SR.24H PO SCH (21:17)
[2021-07-21] MEDS: SIMVASTATIN 20 MG TABLET PO SCH (21:17)
--- NOTE | 2021-07-21 21:34 | NUR ---
RECEIVED PT ON DOUBLE SET UP OXYGEN, HFNC + NRB. PT IS AWAKE. O2 SAT 93%. CONTINUE TO MONITOR. Addendum: 07/21/21 at 2135 by BREANNE PRATHER RT Amended: Links added.
[2021-07-22] VITALS (43 sets, daily range): BP systolic 63–170; BP diastolic 48–96
[2021-07-22] MEDS: METOPROLOL TARTRATE 50 MG TABLET PO SCH ×5 (00:02→23:21)
[2021-07-22] MEDS: ALPRAZOLAM 0.5 MG TABLET PO PRN (02:13)
--- NOTE | 2021-07-22 02:13 | NUR ---
RN NOTE XANAX PRN GIVEN FOR ANXIETY CONTINUE TO MONITOR.
[2021-07-22] MEDS: CEFEPIME 2 GM in IV D5W 100 ML IV SCH (04:39)
[2021-07-22] MEDS: IV NS 0.9% 250 ML IV PRN (05:11)
[2021-07-22] MEDS: BLOOD SUGAR DIAGNOSTIC 1 EACH STRIP IN SCH ×4 (05:19→23:36)
[2021-07-22] MEDS: INSULIN REGULAR, HUMAN 100 UNIT/ML 3 ML VIAL SQ PRN ×4 (05:22→23:37)
[2021-07-22 05:29] LABS: BASOPHILS % (AUTO) 0.4 % (0.0-2.0); HEMATOCRIT 37 % (39-51); HEMOGLOBIN 12.4 g/dL (13.5-17.5); LYMPHOCYTES # (AUTO) 0.3 K/uL (0.8-4.8); LYMPHOCYTES % (AUTO) 3.5 % (20.0-44.0); MEAN CORPUSCULAR HGB CONC 34 g/dl (31.0-36.0); MEAN CORPUSCULAR VOLUME 93 fL (80-96); MONOCYTES # (AUTO) 0.5 K/uL (0.1-1.30); MONOCYTES % (AUTO) 5.3 % (2.0-12.0); NEUTROPHILS % (AUTO) 90.8 % (43.0-81.0); PLATELET COUNT (AUTO) 157 K/uL (150-450); RED BLOOD CELL COUNT(AUTO) 3.96 MIL/uL (4.5-6.0); WHITE BLOOD COUNT (AUTO) 8.8 K/uL (4.3-11.0)
[2021-07-22 06:14] LABS: CALCIUM, SERUM 8.2 mg/dL (8.5-10.1); POTASSIUM 3.6 mmol/L (3.5-5.1)
[2021-07-22 06:15] LABS: BILIRUBIN,DIRECT 0.6 mg/dL (0.0-0.2); BILIRUBIN,TOTAL 1.1 mg/dL (0.2-1.0); CREATININE 1.4 mg/dL (0.6-1.3)
--- NOTE | 2021-07-22 06:38 | NUR ---
RN NOTE PATIENT REMAINS ON ALERT ORIENTED 2-3 ANXIOUS RESTLESS,ON HIGH FLOW OXYGEN 40L FIO2:100% AND NONREBREATHER 15L O2:85-91% IV SITE IS ON RIGHT UPPER ARM MIDLINE AND RIGHT AC INTACT PATENT,SOFT BILATERAL RESTRAIN IN PLACE CHECKED NO SKIN BREAKDOWN WITH GOOD BLOOD FLOW,REPOSITIONED EVERY 2HOURS,WILL ENDORSE NEXT COMING SHIFT FOR CONTINUATION OF CARE.
[2021-07-22] MEDS: LIPASE/PROTEASE/AMYLASE 1 EACH CAPSULE.DR PO SCH ×3 (08:00→17:31)
[2021-07-22] MEDS: Z GUARD REMEDY 4 OZ OINT TP SCH (09:00)
[2021-07-22] MEDS: ALLOPURINOL 100 MG TABLET PO SCH (09:00)
[2021-07-22] MEDS: busPIRone 5 MG TABLET PO SCH ×2 (09:00→17:30)
[2021-07-22] MEDS: DEXAMETHASONE SOD PHOSPHATE 10 MG/ML VIAL IV SCH (09:00)
[2021-07-22] MEDS: PANTOPRAZOLE 40 MG VIAL IV SCH ×2 (09:00→21:09)
[2021-07-22] MEDS: OXYBUTYNIN CHLORIDE 5 MG TABLET PO SCH ×2 (09:00→17:31)
[2021-07-22] MEDS: FOLIC ACID 1 MG TABLET PO SCH (09:00)
[2021-07-22] MEDS: CHOLECALCIFEROL 1,000 UNIT TABLET (VIT D3) PO SCH (09:00)
--- NOTE | 2021-07-22 09:00 | NUR ---
RN NOTE ABG DRAWN. SENT TO DR. SHIELDS. DR. SHIELDS GAVE OKAY TO INTUBATE. FAMILY AWARE.
[2021-07-22 09:04] LABS: ABG BASE EXCESS 0.1 mmol/L; ABG OXYGEN SATURATION 81.2 % (92.0-98.5); ABG PCO2 31.4 mmHg (35.0-45.0); ABG PH 7.479 (7.350-7.450); ABG PO2 43.5 mmHg (75.0-100.0); AaDO2 638.1 mmHg; MetHb 0.3 % (0.0-1.5); O2Hb 80.1 % (94.0-97.0); SITE, ABG Right Radial; VENT MODE, BG HFNC 100% + NRB
--- NOTE | 2021-07-22 09:30 | NUR ---
RN NOTE INTUBATION COMPLETE ALONGSIDE RT AND DR. SWANSON. NO COMPLICATIONS. VENT SETTINGS ARE PEEP 10, TV 500, AC 28, AND FIO2 100%. NG TUBE PLACED AND VERIFIED BY CXR. 16 FR MCCANN PLACED.
--- NOTE | 2021-07-22 09:30 | NUR ---
PT ORALLY INTUBATED WITH 8.0 ET-TUBE SECURED AT 23CM. POSITIVE CO2 DETECTED. EQUAL B/S. PT PLACED ON SETTINGS ORDERED ALARMS SET AND AUDIBLE AMBU-BAG AT HEAD OF BED. VENT PLUGGED INTO RED OUTLET
[2021-07-22] MEDS: PROPOFOL 100 ML IV PRN ×7 (10:22→23:01)
--- NOTE | 2021-07-22 10:45 | NUR ---
RN NOTE CXR INDICATED E6TT SHOULD BE ADVANCED. DR. SHIELDS AWARE AND STATES TUBE SHOULD BE ADVANCED 2.5 CM. RT AWARE
[2021-07-22] MEDS ORDERED: TOCILIZUMAB 400 MG in IV NS 0.9% 80 ML IV ONE (11:00)
--- NOTE | 2021-07-22 11:30 | NUR ---
ET-TUBE ADVANCED TO 26CM.
[2021-07-22] MEDS ORDERED: NOREPINEPHRINE 8 MG in IV NS 0.9% 242 ML IV PRN (12:30)
[2021-07-22] MEDS ORDERED: ACETAMINOPHEN 650 MG/20.3 ML UDC PO ONE (13:00)
[2021-07-22] MEDS ORDERED: diphenhydrAMINE HCL 50 MG/ML VIAL IV ONE (13:00)
[2021-07-22] MEDS: NOREPINEPHRINE 8 MG in IV NS 0.9% 242 ML IV PRN (13:24)
[2021-07-22] MEDS ORDERED: TOCILIZUMAB 800 MG in IV NS 0.9% 60 ML IV ONE (13:30)
[2021-07-22 14:49] LABS: ABG BASE EXCESS -6.7 mmol/L; ABG OXYGEN SATURATION 94.4 % (92.0-98.5); ABG PCO2 36.4 mmHg (35.0-45.0); ABG PH 7.326 (7.350-7.450); ABG PO2 82.3 mmHg (75.0-100.0); AaDO2 594.3 mmHg; MetHb 0.3 % (0.0-1.5); O2Hb 93.2 % (94.0-97.0); PEEP,BG 10 cm H2O; SITE, ABG Right Radial; VT, ABG 500 mL
[2021-07-22] MEDS ORDERED: SUCCINYLCHOLINE CHLORIDE 20 MG/ML VIAL IV ONE (16:12)
[2021-07-22] MEDS ORDERED: PROPOFOL 200 MG/20 ML VIAL IV ONE (16:12)
[2021-07-22] MEDS ORDERED: ROCURONIUM BROMIDE 50 MG/5 ML IV ONE (16:12)
[2021-07-22] MEDS ORDERED: LIDOCAINE 100MG/5ML DISP SYR IV ONE (16:12)
[2021-07-22] MEDS: REMDESIVIR (CHARGED) 100 MG in IV NS 0.9% 100 ML IV SCH (16:49)
--- NOTE | 2021-07-22 19:21 | NUR ---
RN NOTE PT SEDATED ON 70MCG/KG/MIN PROPOFOL. VENT SETTING REMAIN THE SAME 01/02, AC 28, TV 500, FIO2 100%, PEEP 10. DURING CHANGING PT R SHOULDER LACERATION. PICTURE TAKEN AND DOCUMENTED WITH MYOPLEX ON. ALSO WHILE CHANGING NOTICED GI BLEEDING FROM RECTUM OF LIGHT RED BLOOD. MCCANN OUTPUT OF 600. NPO WITH LNGT PLACED AND CONFIRMED BY CXR. JOHN PICC PLACED AND RUNNING 0.1 LEVOPHED. DAUGHTER [phone]
--- NOTE | 2021-07-22 19:30 | NUR ---
GLOBAL CONSUMER SECTOR VICE PRESIDENT OPENING NOTES RECEIVED PT FOR CONTINUITY OF CARE. PATIENT SEDATED, ON MECHANICAL VENT; SETTINGS PRESCRIBED; PT TOLERATED WELL. AMBU BAG AT BED SIDE ALARMS SET PER PROTOCOL AND AUDIBLE. VENT PLUGGED IN TO RED OUTLET. NO DISTRESS NOTED. WITH ONGOING DRIP FOLLOWS: LEVO DRIP RECEIVED @0.1MCG/KG/MIN AND PROPOFOL DRIP @70MCG/KG/MIN RUNNING AND MONITORED PER PROTOCOL. WILL TITRATE NEEDED. WILL ENSURE SAFETY MEASURES WITHIN THE SHIFT. PATIENT BED ALARM IS ON. HEAD OF BED ELEVATED. BED IS LOCKED, IN LOWEST POSITION AND SIDE RAILS UP. CALL LIGHT WITHIN REACH OF THE PATIENT. APPLICABLE ISOLATION PRECAUTIONS IN PLACE. WILL CONTINUE TO MONITOR AND REASSESS FOR ANY CHANGES AND WILL CARRY OUT ANY ONGOING AND ACTIVE MD ORDER.
--- NOTE | 2021-07-22 20:18 | NUR ---
RECEIVED PT INTUBATED 8.0 ETT SECURED AT 25CM AT THE LIP. PT TOLERATING VENT SETTINGS. SX'D SMALL AMT OF THICK PRESTON SECRETIONS. VENT ALARMS SET AND AUDIBLE. ETT CUFF CHECKED. CONTINUE [facility] VENT SUPPORT. Addendum: 07/22/21 at 2020 by BREANNE PRATHER RT Amended: Links added.
--- NOTE | 2021-07-22 20:33 | NUR ---
RN NOTES RECEIVED CALL FROM PT'S BROTHER AR ([phone]); PROVIDED GENERAL UPDATES. ADVISED THAT WILL PROVIDE CALL IF THERE'S ANY SIGNIFICANT CHANGES ABOUT PT'S CONDITION. ALSO ADVISED FAMILY IF THEY HAVE SPECIFIC QUESTIONS ABOUT TX PLAN, CALL IN THE AM TO GET IN TOUCH WITH MD. FAMILY ACKNOWLEDGED.
[2021-07-22] MEDS: TAMSULOSIN 0.4 MG CAP.SR.24H PO SCH (21:10)
[2021-07-22] MEDS: SIMVASTATIN 20 MG TABLET PO SCH (21:10)
--- NOTE | 2021-07-22 23:39 | NUR ---
RN NOTES ACCU CHECK DONE 451; 10 UNITS REGULAR INSULIN GIVEN, NOTIFIED MD. NO NEW ORDERS. PROFESSIONAL VOLLEYBALL PLAYER MADE AWARE.
[2021-07-23] VITALS (95 sets, daily range): BP systolic 96–133; BP diastolic 64–91
--- NOTE | 2021-07-23 | NUR ---
RN NOTES PATIENT REMAINED TO BE IN NO SIGNS OF ACUTE RESPIRATORY DISTRESS , VITAL SIGNS WNL AT THIS TIME. WILL CONTINUE TO MONITOR AND REASSESS FOR ANY CHANGES THROUGHOUT THE SHIFT.
[2021-07-23] MEDS: CEFEPIME 2 GM in IV D5W 100 ML IV SCH ×2 (00:10→12:52)
[2021-07-23] MEDS: PROPOFOL 100 ML IV PRN ×8 (02:01→22:32)
[2021-07-23] MEDS: NOREPINEPHRINE 8 MG in IV NS 0.9% 242 ML IV PRN (02:02)
--- NOTE | 2021-07-23 03:53 | NUR ---
FIO2 TITRATED TO 70%, RN NOTIFIED.
--- NOTE | 2021-07-23 04:00 | NUR ---
RN NOTES NO NOTED CHANGES IN PATIENT CONDITION AT THIS TIME; NO SIGNS OF ACUTE RESPIRATORY DISTRESS; 02 SAT REMAINS >95%. AM PATIENT CARE RENDERED.WILL CONTINUE TO MONITOR AND REASSESS FOR ANY CHANGES THROUGHOUT THE SHIFT.
[2021-07-23] MEDS: methylPREDNISolone SOD SUCC 125 MG/2ML VIAL IV SCH ×3 (04:45→21:28)
[2021-07-23 05:47] LABS: BASOPHILS % (AUTO) 0.3 % (0.0-2.0); EOSINOPHILS % (AUTO) 0.1 % (0.0-6.0); HEMATOCRIT 40 % (39-51); HEMOGLOBIN 13.1 g/dL (13.5-17.5); LYMPHOCYTES # (AUTO) 0.2 K/uL (0.8-4.8); LYMPHOCYTES % (AUTO) 2.8 % (20.0-44.0); MEAN CORPUSCULAR HGB CONC 33 g/dl (31.0-36.0); MEAN CORPUSCULAR VOLUME 95 fL (80-96); MONOCYTES # (AUTO) 0.4 K/uL (0.1-1.30); MONOCYTES % (AUTO) 5.6 % (2.0-12.0); NEUTROPHILS # (AUTO) 6.3 K/uL (1.8-8.9); NEUTROPHILS % (AUTO) 91.2 % (43.0-81.0); PLATELET COUNT (AUTO) 133 K/uL (150-450); RED BLOOD CELL COUNT(AUTO) 4.18 MIL/uL (4.5-6.0); WHITE BLOOD COUNT (AUTO) 6.9 K/uL (4.3-11.0)
[2021-07-23] MEDS: BLOOD SUGAR DIAGNOSTIC 1 EACH STRIP IN SCH ×4 (05:47→23:57)
[2021-07-23] MEDS: INSULIN REGULAR, HUMAN 100 UNIT/ML 3 ML VIAL SQ PRN ×5 (05:50→23:59)
[2021-07-23] MEDS: METOPROLOL TARTRATE 50 MG TABLET PO SCH ×4 (05:52→19:56)
--- NOTE | 2021-07-23 05:54 | NUR ---
ASTRID NOTES HELD AND RETURN LOPRESSOR IN RICH, PT ON PRESSOR (LEVO @# CURRENT BP IS 112/78 AND HR IS AT 86. WILL CONTINUE TO ASSESS AND MONITOR Addendum: 07/23/21 at 0556 by VY LYONS RN LEVO @0.06MCG
[2021-07-23 06:15] LABS: BILIRUBIN,DIRECT 0.8 mg/dL (0.0-0.2); BILIRUBIN,TOTAL 1.1 mg/dL (0.2-1.0); CREATININE 1.7 mg/dL (0.6-1.3); POTASSIUM 4.3 mmol/L (3.5-5.1); TOTAL PROTEIN, SERUM 6.2 g/dL (6.4-8.2)
--- NOTE | 2021-07-23 06:35 | NUR ---
RN CLOSING NOTE: PATIENT REMAINS IN ROOM IN NO SIGNS OF RESPIRATORY DISTRESS, PATIENT STILL ON MECH VENT; SETTINGS PRESCRIBED;TOLERATING WELL SATURATING @ >95% SP02. SAFETY MEASURES IMPLEMENTED, BED IN LOWEST POSITION, LOCKED, SIDE RAILS UP, CALL LIGHT WITHIN REACH. ALL NEEDS AND ORDERS ADDRESSED DURING THE SHIFT. IV ACCESS MAINTAINED INTACT, SECURED AND FLUSHING WELL. ALL DUE MEDS GIVEN ORDERED & SCHEDULED ; PATIENT TOLERATED WELL. STILL WITH ONGOING DRIP FOLLOWS: PROPOFOL DRIP @60MCG/KG/MIN, AND LEVO AT .06MCG/KG/HR ALL RUNNING, MONITORED AND ADJUSTED PER PROTOCOL PATIENT KEPT CLEAN AND COMFORTABLE WITHIN THE SHIFT. PATIENT ENDORSED TO INCOMING SHIFT RN WITH STABLE VITAL SIGN AND FOR CONTINUITY OF CARE.
--- NOTE | 2021-07-23 06:50 | NUR ---
RN NOTES CRITICAL LAB RECEIVED ; GLUCOSE LEVEL @420. WILL NOTIFY YINKA GREGORY. CIRCULATION SUPERVISOR MADE AWARE.
--- NOTE | 2021-07-23 07:15 | NUR ---
ICU OPENING NOTES RECEIVED PT SEDATED, ON MECHANICAL VENT. TOLERATING SETTINGS WELL. NO RESPIRATORY DISTRESS NOTED. WITH ONGOING DRIP OF LEVO @0.06 MCG/KG/MIN AND PROPOFOL @60 MCG/KG/MIN. TREVER PICC LINE INTACT, PATENT AND FLUSHED. MCCANN CATH IN PLACE. SAFETY MEASURES IMPLEMENTED. BED ALARM ON. HOB ELEVATED. BED LOCKED AND IN LOWEST POSITION WITH SIDE RAILS UP X3. ISOLATION PRECAUTIONS IN PLACE. WILL CONTINUE TO MONITOR.
[2021-07-23] MEDS: LIPASE/PROTEASE/AMYLASE 1 EACH CAPSULE.DR PO SCH ×3 (08:24→18:08)
[2021-07-23] MEDS: PANTOPRAZOLE 40 MG VIAL IV SCH ×2 (08:24→21:28)
[2021-07-23] MEDS: OXYBUTYNIN CHLORIDE 5 MG TABLET PO SCH ×2 (08:24→17:01)
[2021-07-23] MEDS: busPIRone 5 MG TABLET PO SCH ×2 (08:24→17:01)
[2021-07-23] MEDS: CHOLECALCIFEROL 1,000 UNIT TABLET (VIT D3) PO SCH (08:24)
[2021-07-23] MEDS: ALLOPURINOL 100 MG TABLET PO SCH (08:24)
[2021-07-23] MEDS: Z GUARD REMEDY 4 OZ OINT TP SCH (08:25)
[2021-07-23] MEDS: FOLIC ACID 1 MG TABLET PO SCH (08:25)
[2021-07-23 08:47] LABS: ABG BASE EXCESS -4.8 mmol/L; ABG PCO2 33.6 mmHg (35.0-45.0); ABG PH 7.381 (7.350-7.450); ABG PO2 86.6 mmHg (75.0-100.0); AaDO2 376.4 mmHg; COHb 0.6 % (0.5-1.5); MetHb 0.3 % (0.0-1.5); O2Hb 95.1 % (94.0-97.0); PEEP,BG 10 cm H2O; SITE, ABG Right Radial; VT, ABG 500 mL
[2021-07-23] MEDS: CLOPIDOGREL BISULFATE 75 MG TABLET PO SCH (08:47)
[2021-07-23] MEDS ORDERED: FUROSEMIDE 20 MG/2 ML VIAL IV SCH (09:00)
[2021-07-23] MEDS ORDERED: IV NS 0.9% 1,000 ML IV ONE (12:00)
--- NOTE | 2021-07-23 12:00 | NUR ---
RN NOTES LOPRESSOR TO HOLD. PT ON PRESSORS.
[2021-07-23] MEDS: REMDESIVIR (CHARGED) 100 MG in IV NS 0.9% 100 ML IV SCH (17:02)
[2021-07-23] MEDS: GLUCERNA 1.2 1,000 ML BOTTLE NG PRN (17:21)
[2021-07-23] MEDS ORDERED: INSULIN REGULAR, HUMAN 100 UNIT/ML 10 ML VIAL IV ONE (18:00)
--- NOTE | 2021-07-23 18:00 | NUR ---
RN NOTES BS OF 451, 10 UNITS INSULIN GIVEN PER ISS. MD MADE AWARE, ORDERED 12 UNITS IVP AND LANTUS 14 UNITS HS. ORDERS CARRIED OUT.
--- NOTE | 2021-07-23 18:00 | NUR ---
RN NOTES LOPRESSOR TO HOLD. PT ON PRESSORS.
--- NOTE | 2021-07-23 18:59 | NUR ---
RN NOTES NO SIGNIFICANT CHANGES THROUGHOUT THE SHIFT. NO S/S OF ANY DISTRESS. KEPT CLEAN AND COMFORTABLE. ALL DUE MEDS GIVEN. WILL ENDORSE TO NIGHT NURSE FOR DOMENIC.
--- NOTE | 2021-07-23 19:45 | NUR ---
ICU/OPERATIONS OFFICER [employer] DEPARTMENT RECIEVED REPORT FROM DAY NURSE. SEE FLOWSHEET FOR ASSESSMENT, SKIN ISSUES ARE ADDRESSED ON FLOWSHEET ALONG WITH INTERVENTIONS TO EACH. PT IS CURRENTLY ON LEVO, SEDATION, AND IV FLUIDS, SEE IV SPREAD SHEET FOR TITRATION TO THESE. PT WAS TURNED AND REPOSITIONED FOR COMFORT AND CARE.
[2021-07-23] MEDS: TAMSULOSIN 0.4 MG CAP.SR.24H PO SCH (21:29)
[2021-07-23] MEDS: SIMVASTATIN 20 MG TABLET PO SCH (21:29)
[2021-07-23] MEDS ORDERED: INSULIN GLARGINE, 100 UNIT/ML CARTRIDGE SQ SCH (22:00)
--- NOTE | 2021-07-23 22:15 | NUR ---
ICU/MARKETING AMBASSADOR LEVO WAS TITRATED OFF THIS PT FOR STABLE BLOOD PRESSURE. WILL CONTINUE TO MONITOR HIS PT AND HIS BLOOD PRESSURE.
[2021-07-24] VITALS (78 sets, daily range): BP systolic 89–126; BP diastolic 57–97
[2021-07-24] MEDS: CEFEPIME 2 GM in IV D5W 100 ML IV SCH ×2 (00:41→12:36)
[2021-07-24] MEDS: PROPOFOL 100 ML IV PRN ×9 (00:42→21:47)
--- NOTE | 2021-07-24 02:45 | NUR ---
ICU/BRIMMING MACHINE OPERATOR DURING BATH, LEFT FOOT IS NOTED TO BE PURPLISH BLUE IN COLOR WITH WEAK PULSE. WILL CONTINUE TO MONITOR THIS PT AND HIS FOOT.
[2021-07-24] MEDS: methylPREDNISolone SOD SUCC 125 MG/2ML VIAL IV SCH ×3 (04:33→21:30)
[2021-07-24] MEDS: METOPROLOL TARTRATE 50 MG TABLET PO SCH ×3 (04:34→17:42)
[2021-07-24] MEDS: IV NS 0.9% 250 ML IV PRN ×2 (04:43→19:01)
[2021-07-24 06:11] LABS: BASOPHILS % (AUTO) 0.3 % (0.0-2.0); HEMATOCRIT 37 % (39-51); HEMOGLOBIN 12.2 g/dL (13.5-17.5); LYMPHOCYTES # (AUTO) 0.1 K/uL (0.8-4.8); LYMPHOCYTES % (AUTO) 2.7 % (20.0-44.0); MEAN CORPUSCULAR HGB CONC 33 g/dl (31.0-36.0); MEAN CORPUSCULAR VOLUME 97 fL (80-96); MONOCYTES # (AUTO) 0.3 K/uL (0.1-1.30); MONOCYTES % (AUTO) 7.4 % (2.0-12.0); NEUTROPHILS # (AUTO) 4.2 K/uL (1.8-8.9); NEUTROPHILS % (AUTO) 89.6 % (43.0-81.0); PLATELET COUNT (AUTO) 105 K/uL (150-450); RED BLOOD CELL COUNT(AUTO) 3.77 MIL/uL (4.5-6.0); WHITE BLOOD COUNT (AUTO) 4.7 K/uL (4.3-11.0)
[2021-07-24] MEDS: BLOOD SUGAR DIAGNOSTIC 1 EACH STRIP IN SCH ×4 (06:11→23:03)
[2021-07-24] MEDS: INSULIN REGULAR, HUMAN 100 UNIT/ML 3 ML VIAL SQ PRN ×4 (06:12→22:54)
[2021-07-24 06:37] LABS: ALBUMIN 1.8 g/dL (3.4-5.0); BILIRUBIN,DIRECT 0.5 mg/dL (0.0-0.2); BILIRUBIN,TOTAL 0.8 mg/dL (0.2-1.0); CALCIUM, SERUM 7.7 mg/dL (8.5-10.1); CREATININE 1.5 mg/dL (0.6-1.3); POTASSIUM 3.8 mmol/L (3.5-5.1); TOTAL PROTEIN, SERUM 5.4 g/dL (6.4-8.2)
--- NOTE | 2021-07-24 07:05 | NUR ---
ICU OPENING NOTES RECEIVED PT SEDATED, ON MECHANICAL VENT. TOLERATING SETTINGS WELL. NO RESPIRATORY DISTRESS NOTED. PROPOFOL @60 MCG/KG/MIN. TREVER PICC LINE INTACT, PATENT AND FLUSHED. MCCANN CATH IN PLACE. NG TUBE IN PLACE, POSITIVE PLACEMENT CHECKED. FEEDING OF GLUCERNA 1.2 @15ML/HR. TOLERATING FEEDING WELL. SAFETY MEASURES IMPLEMENTED. BED ALARM ON. HOB ELEVATED. BED LOCKED AND IN LOWEST POSITION WITH SIDE RAILS UP X3. ISOLATION PRECAUTIONS IN PLACE. WILL CONTINUE TO MONITOR.
--- NOTE | 2021-07-24 07:10 | NUR ---
ICU/SOCIAL MEDIA SPECIALIST GAVE REPORT TO DAY RN WHICH WAS AN UPDATE ON THIS PT SINCE SHE HAD THE PT PREVIOUS DAY. ALSO MADE DAY RN AWARE THAT PT'S LEFT FOOT IS PURPLISH BLUE WITH WEAK PULSES. ASKED THAT THIS BE DISCUSSED WITH MD TO R/O DVT TO LEFT FOOT.
[2021-07-24] MEDS: LIPASE/PROTEASE/AMYLASE 1 EACH CAPSULE.DR PO SCH ×3 (08:32→17:42)
[2021-07-24] MEDS: OXYBUTYNIN CHLORIDE 5 MG TABLET PO SCH ×2 (08:32→17:42)
[2021-07-24] MEDS: busPIRone 5 MG TABLET PO SCH ×2 (08:32→17:42)
[2021-07-24] MEDS: CLOPIDOGREL BISULFATE 75 MG TABLET PO SCH (08:32)
[2021-07-24] MEDS: FOLIC ACID 1 MG TABLET PO SCH (08:32)
[2021-07-24] MEDS: ALLOPURINOL 100 MG TABLET PO SCH (08:32)
[2021-07-24] MEDS: PANTOPRAZOLE 40 MG VIAL IV SCH ×2 (08:32→21:30)
[2021-07-24] MEDS: CHOLECALCIFEROL 1,000 UNIT TABLET (VIT D3) PO SCH (08:32)
[2021-07-24] MEDS: Z GUARD REMEDY 4 OZ OINT TP SCH (08:45)
[2021-07-24] MEDS: PROSOURCE / PROSTAT (PYXIS) 30 ML UDC GT SCH (08:45)
[2021-07-24 09:13] LABS: ABG BASE EXCESS -0.8 mmol/L; ABG OXYGEN SATURATION 94.8 % (92.0-98.5); ABG PCO2 33.6 mmHg (35.0-45.0); ABG PH 7.446 (7.350-7.450); ABG PO2 74.5 mmHg (75.0-100.0); AaDO2 316.3 mmHg; COHb 0.6 % (0.5-1.5); MetHb 0.3 % (0.0-1.5); O2Hb 93.9 % (94.0-97.0); PEEP,BG 10 cm H2O; SITE, ABG Right Radial; VT, ABG 500 mL
--- NOTE | 2021-07-24 12:00 | NUR ---
RN NOTES TEMP OF 99.5, TYLENOL GIVEN ORDERED. COOLING MEASURES RENDERED. WILL CONTINUE TO MONITOR.
[2021-07-24] MEDS: ACETAMINOPHEN 325 MG TABLET PO PRN ×2 (12:02→22:46)
[2021-07-24] MEDS ORDERED: INSULIN REGULAR, HUMAN 100 UNIT/ML 10 ML VIAL IV ONE (18:30)
[2021-07-24] MEDS: GLUCERNA 1.2 1,000 ML BOTTLE NG PRN (18:38)
--- NOTE | 2021-07-24 19:18 | NUR ---
RN NOTES NO SIGNIFICANT CHANGES THROUGHOUT THE SHIFT. NO S/S OF ANY DISTRESS. KEPT CLEAN AND COMFORTABLE. ALL DUE MEDS GIVEN. ENDORSED TO NIGHT NURSE FOR DOMENIC.
--- NOTE | 2021-07-24 19:30 | NUR ---
FOOD SAFETY OFFICER PT ENDORSED BY PREVIOUS NURSE WITH LEFT FOOT COLD TO TOUCH WEAK PULSE; LOSS OF COLOR.
--- NOTE | 2021-07-24 19:45 | NUR ---
RIPSHEAR OPERATOR NOTED R AC IV SITE COVERED IN MULTIPLE LAYERS OF DIRTY TAPE DOES NOT FLUSH WELL NOR IS THERE BLOOD RETURN. REMOVED TAPE AND HL; CLEANSED AREA OF IV SITE.
[2021-07-24] MEDS: TAMSULOSIN 0.4 MG CAP.SR.24H PO SCH (21:30)
[2021-07-24] MEDS: SIMVASTATIN 20 MG TABLET PO SCH (21:30)
[2021-07-24] MEDS ORDERED: INSULIN GLARGINE, 100 UNIT/ML CARTRIDGE SQ SCH (22:00)
[2021-07-25] VITALS (24 sets, daily range): BP systolic 109–159; BP diastolic 61–111
[2021-07-25] MEDS: METOPROLOL TARTRATE 50 MG TABLET PO SCH ×5 (00:28→23:43)
[2021-07-25] MEDS: PROPOFOL 100 ML IV PRN ×9 (00:29→22:34)
[2021-07-25] MEDS: CEFEPIME 2 GM in IV D5W 100 ML IV SCH ×2 (01:05→12:29)
[2021-07-25] MEDS: BLOOD SUGAR DIAGNOSTIC 1 EACH STRIP IN SCH ×6 (05:26→23:00)
[2021-07-25] MEDS: methylPREDNISolone SOD SUCC 125 MG/2ML VIAL IV SCH ×3 (05:27→21:45)
[2021-07-25 05:29] LABS: ABG BASE EXCESS -0.5 mmol/L; ABG PCO2 36.9 mmHg (35.0-45.0); ABG PH 7.423 (7.350-7.450); ABG PO2 77.5 mmHg (75.0-100.0); COHb 0.3 % (0.5-1.5); MetHb 0.3 % (0.0-1.5); O2Hb 94.5 % (94.0-97.0); PEEP,BG 10 cm H2O; SITE, ABG Right Radial; VENT MODE, BG AC 28; VT, ABG 500 mL
[2021-07-25] MEDS: INSULIN REGULAR, HUMAN 100 UNIT/ML 3 ML VIAL SQ PRN ×4 (05:43→22:59)
[2021-07-25 06:00] LABS: CALCIUM, SERUM 7.9 mg/dL (8.5-10.1); CREATININE 1.8 mg/dL (0.6-1.3); POTASSIUM 4.2 mmol/L (3.5-5.1)
[2021-07-25 06:25] LABS: BASOPHILS % (AUTO) 0.1 % (0.0-2.0); HEMATOCRIT 39 % (39-51); HEMOGLOBIN 12.9 g/dL (13.5-17.5); LYMPHOCYTES # (AUTO) 0.2 K/uL (0.8-4.8); LYMPHOCYTES % (AUTO) 3.4 % (20.0-44.0); MEAN CORPUSCULAR HGB CONC 33 g/dl (31.0-36.0); MEAN CORPUSCULAR VOLUME 97 fL (80-96); MONOCYTES % (AUTO) 16.1 % (2.0-12.0); NEUTROPHILS # (AUTO) 5.2 K/uL (1.8-8.9); NEUTROPHILS % (AUTO) 80.4 % (43.0-81.0); PLATELET COUNT (AUTO) 98 K/uL (150-450); WHITE BLOOD COUNT (AUTO) 6.5 K/uL (4.3-11.0)
--- NOTE | 2021-07-25 07:05 | NUR ---
RN OPENING NOTE RECEIVE REPORT FROM GENERAL PRACTICE NURSE. PATIENT ON VENTILATOR WITH SETTINGS OF, AC 200, TV 500, FIO2 60%, PEEP OF 10. PATIENT IS SEDATED ON PROPOFOL AT 60MCG/KG/MIN. WILL FOLLOW UP AM LAB AND DOCTORS ORDERS. PROPER ISOLATION IN PLACE. ALL SAFETY MEASURE IN PLACE. BED ON LOWEST POSITION WITH HOB ELEVATED. WILL CONTINUE TO MONITOR. Addendum: 07/25/21 at 0712 by BERNARDO HILTON RN 28
[2021-07-25] MEDS: CHOLECALCIFEROL 1,000 UNIT TABLET (VIT D3) PO SCH (08:09)
[2021-07-25] MEDS: OXYBUTYNIN CHLORIDE 5 MG TABLET PO SCH ×2 (08:10→16:25)
[2021-07-25] MEDS: FOLIC ACID 1 MG TABLET PO SCH (08:10)
[2021-07-25] MEDS: PANTOPRAZOLE 40 MG VIAL IV SCH ×2 (08:10→21:45)
[2021-07-25] MEDS: LIPASE/PROTEASE/AMYLASE 1 EACH CAPSULE.DR PO SCH ×3 (08:10→17:46)
[2021-07-25] MEDS: CLOPIDOGREL BISULFATE 75 MG TABLET PO SCH (08:10)
[2021-07-25] MEDS: Z GUARD REMEDY 4 OZ OINT TP SCH (08:11)
[2021-07-25] MEDS: busPIRone 5 MG TABLET PO SCH ×2 (08:11→16:25)
[2021-07-25] MEDS: ALLOPURINOL 100 MG TABLET PO SCH (08:11)
[2021-07-25 09:11] LABS: LYMPHOCYTES % (MANUAL) 4 % (16-48); MONOCYTES % (MANUAL) 19 % (0-11.0); NEUTROPHILS % (MANUAL) 77 (42-76)
[2021-07-25] MEDS ORDERED: DEXTROSE 50%-WATER 50 ML DISP.SYRIN IV PRN ×2 (09:30→17:00)
[2021-07-25] MEDS ORDERED: INSULIN REGULAR, HUMAN 100 UNIT/ML 3 ML VIAL IV ONE (09:30)
[2021-07-25] MEDS ORDERED: *INSULIN REGULAR(HUMULIN R)HUM 100 UNIT/ML VIAL SQ PRN (09:30)
[2021-07-25] MEDS ORDERED: INSULIN REGULAR, HUMAN 100 UNIT/ML 3 ML VIAL SQ PRN (09:30)
[2021-07-25] MEDS: PROSOURCE / PROSTAT (PYXIS) 30 ML UDC GT SCH (10:15)
--- NOTE | 2021-07-25 10:45 | NUR ---
ASTRID NOTE NO SEDATION VACATION PER DR. SHIELDS Addendum: 07/25/21 at 1045 by BERNARDO HILTON RN FOR 07/25/21
[2021-07-25] MEDS: ACETAMINOPHEN 325 MG TABLET PO PRN ×2 (12:29→21:46)
[2021-07-25] MEDS: GLUCERNA 1.2 1,000 ML BOTTLE NG PRN (17:46)
--- NOTE | 2021-07-25 19:33 | NUR ---
256 PATIENT IN STABLE CONDITION. REMAIN ON VENTILATOR WITH SETTING OF AC28, TV 500, FIO2 50%, PEEP 10. CXR SHOWS NO CHANGES IN CONDITION. ON DIPRIVAN DRIP AT 60MCG/KG/MIN. NO SEDATION VACATION TODAY PER DR. SHIELDS. RECEIVING TUBE FEEDING WITH GLUCERNA 1.2 @15ML/HR. PATIENT TOLLERATE WELL WITH NO RESIDUAL. LEFT LOWER EXTREMITY FEEL COLD TO THE TOUCH AND DECREASE PULSE. LLE ARTERIAL ULTRASOUND WAS ORDERED PER DR. MICHAUD. PATIENT WAS CLEANED, CHANGED, AND REPOSITION PER PROTOCOL. PROPER ISOLATION PRECAUTION IN PLACE. ALL SAFETY MEASURE IN PLACE. BED ON LOWEST POSITION WITH HOB ELEVATED AND 3 SIDE RAIL UP. WILL CONTINUE TO MONITOR AND ENDORSE TO ON COMING NURSE. Addendum: 07/25/21 at 1935 by BERNARDO HILTON RN RN CLOSING NOTE
[2021-07-25] MEDS ORDERED: MEROPENEM 500 MG in IV NS 0.9% 50 ML IV SCH (20:30)
[2021-07-25] MEDS: IV NS 0.9% 250 ML IV PRN (21:38)
[2021-07-25] MEDS: TAMSULOSIN 0.4 MG CAP.SR.24H PO SCH (21:46)
[2021-07-25] MEDS: SIMVASTATIN 20 MG TABLET PO SCH (21:46)
[2021-07-25] MEDS: DOXYCYCLINE HYCLATE (100 MG) 100 MG TABLET PO SCH (21:46)
[2021-07-25] MEDS ORDERED: INSULIN GLARGINE, 100 UNIT/ML CARTRIDGE SQ SCH (22:00)
[2021-07-26] VITALS (21 sets, daily range): BP systolic 95–144; BP diastolic 61–92
[2021-07-26] MEDS: PROPOFOL 100 ML IV PRN ×9 (01:42→23:46)
--- NOTE | 2021-07-26 02:43 | NUR ---
SHOE IRONER URINE AND SPUTUM COLLECTED AND SENT TO LAB
[2021-07-26] MEDS: METOPROLOL TARTRATE 50 MG TABLET PO SCH ×3 (05:34→17:40)
[2021-07-26] MEDS: ACETAMINOPHEN 325 MG TABLET PO PRN (05:34)
[2021-07-26] MEDS: methylPREDNISolone SOD SUCC 125 MG/2ML VIAL IV SCH ×3 (05:34→20:30)
[2021-07-26] MEDS: BLOOD SUGAR DIAGNOSTIC 1 EACH STRIP IN SCH ×3 (05:34→17:39)
[2021-07-26] MEDS: INSULIN REGULAR, HUMAN 100 UNIT/ML 3 ML VIAL SQ PRN ×3 (06:16→17:42)
--- NOTE | 2021-07-26 07:02 | NUR ---
N OPENING NOTE RECEIVE REPORT FROM SPRING FITTER NURSE. PATIENT ON VENTILATOR WITH SETTINGS OF, AC 28, TV 500, FIO2 60%, PEEP OF 10. PATIENT IS SEDATED ON PROPOFOL AT 60MCG/KG/MIN. WILL FOLLOW UP AM LAB AND DOCTORS ORDERS. PROPER ISOLATION IN PLACE. ALL SAFETY MEASURE IN PLACE. BED ON LOWEST POSITION WITH HOB ELEVATED. WILL CONTINUE TO MONITOR.
[2021-07-26] MEDS ORDERED: INSULIN REGULAR, HUMAN 100 UNIT/ML 3 ML VIAL IV ONE (08:00)
[2021-07-26] MEDS: PANTOPRAZOLE 40 MG VIAL IV SCH ×2 (08:07→20:30)
[2021-07-26] MEDS: FOLIC ACID 1 MG TABLET PO SCH (08:08)
[2021-07-26] MEDS: LIPASE/PROTEASE/AMYLASE 1 EACH CAPSULE.DR PO SCH ×3 (08:08→17:39)
[2021-07-26] MEDS: CHOLECALCIFEROL 1,000 UNIT TABLET (VIT D3) PO SCH (08:08)
[2021-07-26] MEDS: OXYBUTYNIN CHLORIDE 5 MG TABLET PO SCH ×2 (08:08→16:06)
[2021-07-26 08:09] LABS: ABG BASE EXCESS -0.7 mmol/L; ABG OXYGEN SATURATION 94.3 % (92.0-98.5); ABG PCO2 28.3 mmHg (35.0-45.0); ABG PH 7.494 (7.350-7.450); ABG PO2 69.2 mmHg (75.0-100.0); AaDO2 327.5 mmHg; COHb 1.1 % (0.5-1.5); MetHb 0.3 % (0.0-1.5); SITE, ABG Right Radial
[2021-07-26] MEDS: CLOPIDOGREL BISULFATE 75 MG TABLET PO SCH (08:09)
[2021-07-26] MEDS: Z GUARD REMEDY 4 OZ OINT TP SCH (08:09)
[2021-07-26] MEDS: ALLOPURINOL 100 MG TABLET PO SCH (08:09)
[2021-07-26] MEDS: DOXYCYCLINE HYCLATE (100 MG) 100 MG TABLET PO SCH ×2 (08:09→20:30)
[2021-07-26] MEDS: busPIRone 5 MG TABLET PO SCH ×2 (08:09→16:06)
[2021-07-26] MEDS: FLUCONAZOLE (100 MG) 100 MG TABLET PO SCH (08:09)
[2021-07-26] MEDS: MEROPENEM 1 G in IV NS 0.9% 100 ML IV SCH ×2 (08:40→20:24)
[2021-07-26] MEDS ORDERED: MEROPENEM 500 MG in IV NS 0.9% 50 ML IV SCH (09:00)
[2021-07-26] MEDS: PROSOURCE / PROSTAT (PYXIS) 30 ML UDC GT SCH (09:30)
[2021-07-26] MEDS: GLUCERNA 1.2 1,000 ML BOTTLE NG PRN (16:28)
--- NOTE | 2021-07-26 18:39 | NUR ---
RN CLOSING NOTE PATIENT REMAIN IN STABLE CONDITION WITH VENT SUPPORT. VENT SETTINGS; AC28, TV 500, FIO2 50%, PEEP 12. PATEIN O2 SAT 89-93%. REMAIN ON SEDATION WITH DIPRIVAN AT 60MCG/KG/HR. TUBE FEEDING WITH GLUCERNA 1.2 AT 15ML/HR. FEEDING WAS STOP AT 1800 WITH RESIDUAL OF 90ML. NO BOWEL MOVEMENT. NO SEDATION VACATION WAS DONE. ALL MEDS WAS GIVEN. PATIENT WAS CLEANED, BED SHEET AND GOWN WAS CHANGED. ALL DRESSING WAS CHANGED. PROPER ISOLATION IN PLACE. ALL SAFETY MEASURE IN PLACE. BED ON LOWEST POSITION WITH HOB ELEVATED. WILL CONTINUE TO MONITOR AND ENDORSE TO ARCHITECTURE DRAFTER NURSE.
--- NOTE | 2021-07-26 19:26 | NUR ---
MAINTENANCE FITTER.INITIAL ASSESSMENT. RECEIVED THE PT REST IN BED, ORALLY INTUBATED. SEDATED WITH PROPOFOL 60MCG/KG/MIN, ETT #8,LIP 25,AC 28,TV 500,FIO2 50%,PEEP 12. SAT 97%, NO ACUTE DISTRESS NOTED EQUINE VET SHOWING S TACH. FC PATENT. NIMESH SOFT WRIST RESTRAINT CHECKED AND RELEASED, NO INJURY OR REDNESS NOTED. HOB ELEVATED. WILL CONTINUE TO MONITOR VITALS.
[2021-07-26] MEDS: IV NS 0.9% 250 ML IV PRN (21:23)
[2021-07-26] MEDS: SIMVASTATIN 20 MG TABLET PO SCH (21:28)
[2021-07-26] MEDS: TAMSULOSIN 0.4 MG CAP.SR.24H PO SCH (21:28)
[2021-07-26] MEDS ORDERED: INSULIN GLARGINE, 100 UNIT/ML CARTRIDGE SQ SCH (22:00)
[2021-07-27] VITALS (28 sets, daily range): BP systolic 49–167; BP diastolic 22–113
[2021-07-27] MEDS: INSULIN REGULAR, HUMAN 100 UNIT/ML 3 ML VIAL SQ PRN ×3 (00:45→11:47)
[2021-07-27] MEDS: BLOOD SUGAR DIAGNOSTIC 1 EACH STRIP IN SCH ×3 (00:46→11:46)
[2021-07-27] MEDS: METOPROLOL TARTRATE 50 MG TABLET PO SCH ×3 (00:50→11:46)
--- NOTE | 2021-07-27 01:00 | NUR ---
curriculum advisory teacher. blood sugar 428. notified andrew gupta.
[2021-07-27] MEDS: PROPOFOL 100 ML IV PRN ×2 (04:39→07:24)
[2021-07-27] MEDS: methylPREDNISolone SOD SUCC 125 MG/2ML VIAL IV SCH ×2 (06:00→13:23)
--- NOTE | 2021-07-27 06:22 | NUR ---
UNIT SECY. BLOOD SUGAR 544. INSULIN 20 UNITS GIVEN PER PROTOCOL. PAGED FORENSIC SERGEANT
[2021-07-27 07:43] LABS: BASOPHILS # (AUTO) 0.1 K/uL (0.0-0.2); BASOPHILS % (AUTO) 0.4 % (0.0-2.0); EOSINOPHILS % (AUTO) 0.1 % (0.0-6.0); HEMATOCRIT 47 % (39-51); HEMOGLOBIN 15.5 g/dL (13.5-17.5); LYMPHOCYTES # (AUTO) 1.1 K/uL (0.8-4.8); LYMPHOCYTES % (AUTO) 6.9 % (20.0-44.0); MEAN CORPUSCULAR HGB CONC 33 g/dl (31.0-36.0); MEAN CORPUSCULAR VOLUME 97 fL (80-96); MONOCYTES # (AUTO) 1.1 K/uL (0.1-1.30); MONOCYTES % (AUTO) 6.4 % (2.0-12.0); NEUTROPHILS # (AUTO) 14.2 K/uL (1.8-8.9); NEUTROPHILS % (AUTO) 86.2 % (43.0-81.0); PLATELET COUNT (AUTO) 93 K/uL (150-450); RED BLOOD CELL COUNT(AUTO) 4.89 MIL/uL (4.5-6.0); WHITE BLOOD COUNT (AUTO) 16.5 K/uL (4.3-11.0)
--- NOTE | 2021-07-27 07:47 | NUR ---
BLOOD SUGAR NOTIFIED Avtar LUDWIG. WAITING FOR BMP RESULT
[2021-07-27] MEDS: PROSOURCE / PROSTAT (PYXIS) 30 ML UDC GT SCH (08:25)
[2021-07-27] MEDS: LIPASE/PROTEASE/AMYLASE 1 EACH CAPSULE.DR PO SCH ×2 (08:25→13:23)
[2021-07-27] MEDS: OXYBUTYNIN CHLORIDE 5 MG TABLET PO SCH (08:25)
[2021-07-27] MEDS: CLOPIDOGREL BISULFATE 75 MG TABLET PO SCH (08:26)
[2021-07-27] MEDS: DOXYCYCLINE HYCLATE (100 MG) 100 MG TABLET PO SCH (08:26)
[2021-07-27] MEDS: ALLOPURINOL 100 MG TABLET PO SCH (08:26)
[2021-07-27] MEDS: FOLIC ACID 1 MG TABLET PO SCH (08:26)
[2021-07-27] MEDS: busPIRone 5 MG TABLET PO SCH (08:26)
[2021-07-27] MEDS: FLUCONAZOLE (100 MG) 100 MG TABLET PO SCH (08:26)
[2021-07-27] MEDS: CHOLECALCIFEROL 1,000 UNIT TABLET (VIT D3) PO SCH (08:26)
[2021-07-27] MEDS: Z GUARD REMEDY 4 OZ OINT TP SCH (08:27)
[2021-07-27 08:35] LABS: ABG BASE EXCESS -5.3 mmol/L; ABG OXYGEN SATURATION 92.2 % (92.0-98.5); ABG PCO2 38.8 mmHg (35.0-45.0); ABG PH 7.332 (7.350-7.450); ABG PO2 66.2 mmHg (75.0-100.0); AaDO2 318.9 mmHg; COHb 1.3 % (0.5-1.5); MetHb 0.3 % (0.0-1.5); O2Hb 90.7 % (94.0-97.0); SITE, ABG Left Radial
[2021-07-27] MEDS: PANTOPRAZOLE 40 MG VIAL IV SCH (09:21)
[2021-07-27] MEDS: MEROPENEM 1 G in IV NS 0.9% 100 ML IV SCH (09:21)
[2021-07-27 10:19] LABS: CALCIUM, SERUM 7.9 mg/dL (8.5-10.1); CREATININE 2.1 mg/dL (0.6-1.3)
--- NOTE | 2021-07-27 10:30 | NUR ---
RN NOTES JESUS RUSH NOTIFIED REGRADING BG 477, ALSO O2 SAT OF O2 SAT OF 66% AND UNABLE TO GET ACCURATE BP . NEW ORDER RECEIVED.
[2021-07-27 10:38] LABS: BAND % (MANUAL) 9 % (0.0-5.0); LYMPHOCYTES % (MANUAL) 9 % (16-48); MONOCYTES % (MANUAL) 6 % (0-11.0); NEUTROPHILS % (MANUAL) 76 (42-76)
[2021-07-27] MEDS: NOREPINEPHRINE 8 MG in IV NS 0.9% 242 ML IV PRN ×2 (11:11→14:41)
--- NOTE | 2021-07-27 11:45 | NUR ---
RN NOTE JESUS GRIFFITH NOTIFIED [facility] OF 544, JESUS GRIFFITH ORDERED INSULIN NPH.
[2021-07-27] MEDS ORDERED: INSULIN NPH/REG 70/30 MIX INJ 100 UNIT/ML VIAL SQ SCH (12:00)
[2021-07-27] MEDS: PHENYLEPHRINE 100 MG in IV NS 0.9% 240 ML IV PRN ×2 (12:20→12:23)
--- NOTE | 2021-07-27 12:42 | NUR ---
RN NOTE DR. RODRIGUEZ AT BEDSIDE, MD NOTIFIED UNABLE TO GET BP, DR. RODRIGUEZ ORDERED BOLUS 1000CC. DR. RODRIGUEZ ORDERED VASOPRESSIN.
[2021-07-27] MEDS ORDERED: IV NS 0.9% 1,000 ML IV ONE (13:00)
[2021-07-27] MEDS ORDERED: VASOPRESSIN INJ 40 UNIT in IV NS 0.9% 38 ML IV PRN ×2 (13:00→15:30)
--- NOTE | 2021-07-27 15:32 | NUR ---
RN NOTES PT HR IN 20'S, NO BLOOD PRESSURE, NO O2 SAT , CODE BLUE INITIATED.
--- NOTE | 2021-07-27 15:56 | NUR ---
[employer] CODE BLUE STOPPED AT 1556, PRONOUNCED BY JESUS GRIFFITH NP. FAMILY WAS CONTACTED BY PHONE. FINANCE INTERN AND BATTERY REPAIRER NOTIFIED.
--- NOTE | 2021-07-27 16:19 | NUR ---
ASTRID VARGHESE NOTIFIED REGARDING PATIENT . Addendum: 07/27/21 at 1630 by SOWMYA ROWLEY RN ASTRID BUSTAMANTE AND CASSIA VARGHESE NOTIFIED REGARDING PATIENT .
--- NOTE | 2021-07-27 16:32 | NUR ---
RN NOTE NOTIFIED [facility] NOT A CANDIDATE, TALKED TO PATRICK,
[2021-07-27] MEDS ORDERED: CALCIUM CHLORIDE 1,000 MG/10 ML DISP.SYRIN IV ONE (16:36)
[2021-07-27] MEDS ORDERED: SODIUM BICARBONATE SYR 50 MEQ/50 ML DISP.SYRIN IV ONE (16:36)
[2021-07-27] MEDS ORDERED: EPINEPHRINE (1:10,000) SYRINGE 1 MG/10 ML DISP.SYRIN IVP ONE (16:36)
[2021-07-27] MEDS ORDERED: AMIODARONE 150 MG/3 ML VIAL IV ONE (16:36)
--- NOTE | 2021-07-27 18:16 | NUR ---
RN NOTE PER FAMILY VIRA BUSTAMANTE, TROW AWAY BELONGINGS, FAMILY ONLY TOOK IPHONE AND SOCIAL SERVICE COORDINATOR.
== END 2021-07-27 15:56 | DRG 207 ==
LOC: ER 17:49 → TRANSITION 20:46 → TELE1 07-14 11:31 → MEDSG1 07-14 11:37 → ICU 07-21 09:47
PROVIDERS: ADMIT Nurse Practitioner Acute Care; ATTEND Nurse Practitioner Acute Care
PROC: XW033E5 Introduction of Remdesivir Anti-infective into Peripheral Vein, Percutaneous Approach, New Technology Group 5 (ICD-10-PCS; 2021-07-15)
PROC: 05HB33Z Insertion of Infusion Device into Right Basilic Vein, Percutaneous Approach (ICD-10-PCS; 2021-07-20)
PROC: XW033H5 Introduction of Tocilizumab into Peripheral Vein, Percutaneous Approach, New Technology Group 5 (ICD-10-PCS; principal; 2021-07-22)
PROC: 5A1955Z Respiratory Ventilation, Greater than 96 Consecutive Hours (ICD-10-PCS; 2021-07-22)
PROC: 0BH17EZ Insertion of Endotracheal Airway into Trachea, Via Natural or Artificial Opening (ICD-10-PCS; 2021-07-22)
PROC: 02HV33Z Insertion of Infusion Device into Superior Vena Cava, Percutaneous Approach (ICD-10-PCS; 2021-07-22)
PROC: B548ZZA Ultrasonography of Superior Vena Cava, Guidance (ICD-10-PCS; 2021-07-22)
PROC: 04HK33Z Insertion of Infusion Device into Right Femoral Artery, Percutaneous Approach (ICD-10-PCS; 2021-07-27)
PROC: 5A2204Z Restoration of Cardiac Rhythm, Single (ICD-10-PCS; 2021-07-27)
DX: U07.1 COVID-19 (principal); N17.0 Acute kidney failure with tubular necrosis; G92.8 Other toxic encephalopathy; J96.01 Acute respiratory failure with hypoxia; J12.82 Pneumonia due to coronavirus disease 2019; K92.2 Gastrointestinal hemorrhage, unspecified; E87.1 Hypo-osmolality and hyponatremia; E44.0 Moderate protein-calorie malnutrition; D68.59 Other primary thrombophilia; D61.818 Other pancytopenia; E86.0 Dehydration; I12.9 Hypertensive chronic kidney disease with stage 1 through stage 4 chronic kidney disease, or unspecified chronic kidney disease; E11.22 Type 2 diabetes mellitus with diabetic chronic kidney disease; E11.65 Type 2 diabetes mellitus with hyperglycemia; Z79.84 Long term (current) use of oral hypoglycemic drugs; Z79.899 Other long term (current) drug therapy; Z79.82 Long term (current) use of aspirin; I25.10 Atherosclerotic heart disease of native coronary artery without angina pectoris; I25.2 Old myocardial infarction; M10.9 Gout, unspecified; N18.9 Chronic kidney disease, unspecified; N40.0 Benign prostatic hyperplasia without lower urinary tract symptoms; T38.0X5A Adverse effect of glucocorticoids and synthetic analogues, initial encounter; Y92.9 Unspecified place or not applicable; E66.9 Obesity, unspecified; E86.1 Hypovolemia; E87.8 Other disorders of electrolyte and fluid balance, not elsewhere classified; E87.70 Fluid overload, unspecified; K76.0 Fatty (change of) liver, not elsewhere classified; Z79.02 Long term (current) use of antithrombotics/antiplatelets; Z95.5 Presence of coronary angioplasty implant and graft; F39 Unspecified mood [affective] disorder; D69.6 Thrombocytopenia, unspecified
CPT/HCPCS: 31720; 36415; 36600; 71045-TC; 80048-TC; 80061-TC; 80076-TC; 82728-TC; 82784; 82803-TC; 82962-TC; 83540-TC; 83690-TC; 83735-TC; 84100-TC; 84155; 84165; 84443-TC; 84478-TC; 84484-TC; 85025-TC; 85378-TC; 85396; 85610-TC; 85730-TC; 86140-TC; 86225; 86235; 86334; 86431-TC; 86480; 86706; 86803; 86850-TC; 87040-TC; 87070-TC; 87081-TC; 87086-TC; 87186-TC; 87340; 87806; 87899; 93307-TC; 93926-TC; 94003-TC; 94640-TC; 94760-TC; 94799-TC; A4216; A4349; C9113; G0378; J0171; J0282; J0330; J0692; J1100; J1200; J1815; J1940; J2001; J2185; J2370; J2405; J2704; J2930; J3262; J3490; J7030; J7040; J7050; J7060; J7120